=== PATIENT | female | born 1945 | race Caucasian/White ===

== ENCOUNTER 2018-12-17 21:33 | Inpatient (IN) | payer MEDICARE, OTHER ==
[2018-12-17 22:37] VITALS: BMI 28.3
[2018-12-18 00:26] LABS: BASO # 0.1 K/uL (0.0-0.2); BASO % 0.5 % (0.0-2.0); EOS # 0.1 K/uL (0.0-0.7); EOS % 1.1 % (0.0-4.0); HEMOGLOBIN 10.3 g/dL (12.0-16.0); LYMPH # 2.4 K/uL (1.0-4.3); LYMPH % 22.5 % (20.0-40.0); MEAN CELL VOLUME 94.9 fl (81.0-99.0); MEAN CORPUSCULAR HEMOGLOBIN 32.1 pg (27.0-31.0); MEAN CORPUSCULAR HGB CONC 33.8 g/dL (33.0-37.0); MEAN PLATELET VOLUME 8.9 fl (7.2-11.7); MONO # 0.9 K/uL (0.0-0.8); MONO % 8.4 % (0.0-10.0); NEUT # 7.2 K/uL (1.8-7.0); NEUT % 67.5 % (50.0-75.0); RBC 3.22 Mil/uL (3.80-5.20); WHITE BLOOD COUNT 10.7 K/uL (4.8-10.8)
[2018-12-18 00:35] LABS: PROTHROMBIN TIME 11.9 Seconds (9.8-13.1)
[2018-12-18 00:37] LABS: PARTIAL THROMBOPLASTIN TIME 26.4 Seconds (25.6-37.1)
[2018-12-18 00:39] LABS: CALCIUM 9.2 mg/dL (8.4-10.2)
[2018-12-18 00:41] LABS: ALB/GLOB RATIO 1.3 (1.0-2.1); ALBUMIN 3.9 g/dL (3.5-5.0)
--- NOTE | 2018-12-18 02:08 | ED PDOC ---
HPI: General Adult Time Seen by Provider: 12/17/18 22:47 Chief Complaint (Nursing): Lower Extremity Problem/Injury Chief Complaint (Provider): Left calf pain History Per: Patient History/Exam Limitations: no limitations Onset/Duration Of Symptoms: Days Have you had recent travel within the past 21 days to any of the following countries: [place], [place], [place] or [place]?: No Current Symptoms Are (Timing): Still Present Additional Complaint(s): 73 yo female with kidney disease, HTN, CAD, hypothyroid and dementia presents for evaluation of left calf pain a 1 week. Pt sent to ER by Dr. Correa for admission for DVT in [facility]. Pt also reports left hip pain. Daughters in ER and states patient is able to bear weight but has been complaining for awhile. Pt alert in ER. Past Medical History Reviewed: Historical Data, Nursing Documentation, Vital Signs Vital Signs: Last Vital Signs Temp 98.4 F 12/18/18 01:59 Pulse 77 12/18/18 01:59 Resp 15 12/18/18 01:59 BP 111/56 L 12/18/18 01:59 Pulse Ox 96 12/18/18 01:59 Primary Care Provider: Doctor,Alia - Medical History PMH: Arthritis, CAD, Depression, Diabetes, HTN, Hypercholesterolemia, Hypothyroidism Denies: Dementia (denies) - Surgical History Surgical History: Coronary Stent - Family History Family History: States: Unknown Family Hx - Home Medications Home Medications: Ambulatory Orders Medication Instructions Recorded Clopidogrel Bisulfate [Plavix] 75 mg PO DAILY 12/18/18 Donepezil HCl [Aricept] 10 mg PO DAILY 12/18/18 Ezetimibe [Zetia] 10 mg PO DAILY 12/18/18 Ferrous Gluconate [Fergon] 324 mg PO DAILY 12/18/18 Folic Acid 1 mg PO DAILY 12/18/18 Levothyroxine [Synthroid] 25 mcg PO DAILY 12/18/18 Losartan/Hydrochlorothiazide 12.5 mg PO DAILY 12/18/18 [Losartan-Hctz 100-12.5 mg Tab] Megestrol Acetate [Megace] DAILY 12/18/18 Memantine [Namenda] 10 mg PO DAILY 12/18/18 Ranolazine [Ranexa] 500 mg PO DAILY 12/18/18 Simvastatin [Zocor] 20 mg PO DAILY 12/18/18 Sitagliptin Phos/Metformin HCl 1,000 mg PO DAILY 12/18/18 [Janumet 50-1,000 mg Tablet] amLODIPine [Norvasc] 5 mg PO DAILY 12/18/18 - Allergies Allergies/Adverse Reactions: Allergies Allergy/AdvReac Type Severity Reaction Status Date / Time No Known Allergies Allergy Verified 12/17/18 22:38 Review of Systems ROS Statement: Except As Marked, All Systems Reviewed And Found Negative Constitutional: Negative for: Fever, Chills ENT: Negative for: Ear Pain, Ear Discharge, Nose Discharge Cardiovascular: Negative for: Palpitations Respiratory: Negative for: Cough, Shortness of Breath Gastrointestinal: Negative for: Nausea, Vomiting, Abdominal Pain Musculoskeletal: Positive for: Leg Pain, Other (LEft hip pain) Skin: Negative for: Bruising Neurological: Negative for: Weakness, Numbness Physical Exam - Reviewed Nursing Documentation Reviewed: Yes Vital Signs Reviewed: Yes - Physical Exam Appears: Positive for: Well, Non-toxic, No Acute Distress Head Exam: Positive for: ATRAUMATIC, NORMAL INSPECTION, NORMOCEPHALIC Skin: Positive for: Normal Color, Warm, DRY Eye Exam: Positive for: Normal appearance ENT: Positive for: Normal ENT Inspection Neck: Positive for: Normal, Painless ROM Cardiovascular/Chest: Positive for: Regular Rate, Rhythm Respiratory: Positive for: Normal Breath Sounds. Negative for: Accessory Muscle Use, Respiratory Distress Gastrointestinal/Abdominal: Positive for: Normal Exam, Soft Back: Positive for: Normal Inspection Extremity: Positive for: Normal ROM Neurological/Psych: Positive for: Awake, Alert, Normal Tone - Laboratory Results Result Diagrams: 12/17/18 23:50 12/17/18 23:50 Lab Results: PT 11.9 Seconds (9.8-13.1) 12/17/18 23:50 INR 1.0 12/17/18 23:50 APTT 26.4 Seconds (25.6-37.1) 12/17/18 23:50 Total Bilirubin 0.7 mg/dl (0.2-1.3) 12/17/18 23:50 AST 45 U/L (14-36) H 12/17/18 23:50 ALT 26 U/L (9-52) 12/17/18 23:50 Alkaline Phosphatase 36 U/L (38-126) L 12/17/18 23:50 Total Protein 6.9 G/DL (6.3-8.2) 12/17/18 23:50 Albumin 3.9 g/dL (3.5-5.0) 12/17/18 23:50 Globulin 3.0 gm/dL (2.2-3.9) 12/17/18 23:50 Albumin/Globulin Ratio 1.3 (1.0-2.1) 12/17/18 23:50 - ECG O2 Sat by Pulse Oximetry: 96 Medical Decision Making Medical Decision Making: Discussed with Dr. Garcia for admission. Hematology consult ordered. Disposition - Clinical Impression Clinical Impression: DVT (deep venous thrombosis) - Patient ED Disposition Is Patient to be Admitted: Yes - Disposition Disposition Time: 01:18 Condition: STABLE
[2018-12-18] MEDS: Levothyroxine 25 MCG TAB PO SCH (06:39)
[2018-12-18 08:08] LABS: ALB/GLOB RATIO 1.3 (1.0-2.1); ALBUMIN 3.3 g/dL (3.5-5.0)
[2018-12-18] MEDS ORDERED: Heparin 25,000units in D5W 25,000 UNITS/250 ML BAG IV SCH (10:15)
[2018-12-18] MEDS: Ranolazine 500 mg Extended Release Tablets PO SCH (10:18)
[2018-12-18] MEDS: Insulin Regular 100 units/ml SC SCH ×5 (10:21→21:48)
--- NOTE | 2018-12-18 10:46 | US ---
Date of service: 12/17/2018 PROCEDURE: Bilateral lower extremity venous duplex Doppler. HISTORY: (+) DVT COMPARISON: None available. TECHNIQUE: Bilateral common femoral, superficial femoral, popliteal and posterior tibial veins were evaluated. Flow was assessed with color Doppler, compressibility, assessment of phasic flow and augmentation response. FINDINGS: COMMON FEMORAL VEIN: Right CFV: Unremarkable. Left CFV: Unremarkable. SUPERFICIAL FEMORAL VEIN: Right SFV: Unremarkable. Left SFV: Unremarkable. POPLITEAL VEIN: Right Popliteal: Unremarkable Left Popliteal: Noncompressible left popliteal vein/segmental DVT. POSTERIOR TIBIAL VEIN: Right PTV: Unremarkable. Left PTV: Unremarkable. OTHER FINDINGS: None. IMPRESSION: Focal/segmental thrombus confined to the left popliteal vein. No evidence of right lower extremity deep vein thrombosis. Concordant findings (preliminary report) provided by [facility].
--- NOTE | 2018-12-18 11:00 | RAD ---
PROCEDURE: Left Hip X-ray Radiographs. HISTORY: Pain. No history of recent/ related trauma provided. Anatomic area of interest: Greater trochanter region. COMPARISON: None. TECHNIQUE: 2 views obtained. FINDINGS: BONES: Normal. No fracture. JOINTS: Mild femoral acetabular degenerative changes, bilaterally symmetric. SOFT TISSUES: Normal. OTHER FINDINGS: None. IMPRESSION: No acute findings related to/ accounting for the clinical presentation.
--- NOTE | 2018-12-18 11:04 | RAD ---
Date of service: 12/18/2018 HISTORY: Deep vein thrombosis. COMPARISON: 09/03/2009. FINDINGS: LUNGS: No active pulmonary disease. Increased interstitial markings accentuated by poor inspiratory effort compared to prior studies. PLEURA: No significant pleural effusion identified, no pneumothorax apparent. CARDIOVASCULAR: No atherosclerotic calcification present Normal. OSSEOUS STRUCTURES: No significant abnormalities. VISUALIZED UPPER ABDOMEN: Normal. OTHER FINDINGS: None. IMPRESSION: No active disease. No significant interval change compared to the prior examination(s).
--- NOTE | 2018-12-18 15:31 | CARD ---
APPROVED REPORT Date of service: 12/18/2018 EKG Measurement Heart [id number] <Conclusion> Sinus rhythm with 1st degree AV block Otherwise normal ECG
--- NOTE | 2018-12-18 15:40 | CP.PCM.HP ---
History of Present Illness - History of Present Illness History of Present Illness: 73F with past medical history of dementia and diabetes. HPI was obtained from the family because the patient is demented. She was sent to the hospital by me, her PCP, due to left leg swelling and finding of partial thrombosis on LLE US outaptient 1 week prior. Family was advised to send the patient to the hospital several days prior but the patient adamantly refused to come. They finally convinced her to come to the ED last night. She was admitted for treatment for LLE DVT. Lindsey also notes she has diarrhea several days that has now improved. Other concerns frim the family is that her left hip/gluteal region is larger than the right and the patient has been complaining of left hip /left lower back pain and asymmetric gait(limping on the left side). There are no other major complaints Present on Admission - Present on Admission Any Indicators Present on Admission: Yes History of DVT/PE: Yes History of Uncontrolled Diabetes: Yes Urinary Catheter: No Decubitus Ulcer Present: No History Surgical Site Infection Following: None Review of Systems - Review of Systems Systems not reviewed;Unavailable: Dementia All systems: reviewed and no additional remarkable complaints except Past Patient History - Past Medical History & Family History Past Medical History?: Yes Pertinent Family History: Past Medical history : CAD, dementia, diabetes, hypercholesterolemia, hypothyroid, depression Past Sugical history: coronary stent allergies : NKDA Social Hx: former smoker, social drinker, no drugs. 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 [place] HCP: daughter - Lane Bains [phone] Mulu Harrell [phone] Father:father=CAD, young Mother: MA in 70s - Past Social History Smoking Status: Never Smoked - CARDIAC Hx Hypercholesterolemia: Yes Hx Hypertension: Yes - NEUROLOGICAL Hx Dementia: Yes ( ) - ENDOCRINE/METABOLIC Hx Hypothyroidism: Yes - MUSCULOSKELETAL/RHEUMATOLOGICAL Hx Arthritis: Yes Hx Falls: Yes - PSYCHIATRIC Hx Depression: Yes Hx Substance Use: No - SURGICAL HISTORY Hx Coronary Stent: Yes - ANESTHESIA Hx Anesthesia: Yes Hx Anesthesia Reactions: No Meds Allergies/Adverse Reactions: Allergies Allergy/AdvReac Type Severity Reaction Status Date / Time No Known Allergies Allergy Verified 12/17/18 22:38 Physical Exam - Constitutional Appears: Non-toxic, No Acute Distress - Head Exam Head Exam: ATRAUMATIC, NORMAL INSPECTION - Eye Exam Eye Exam: EOMI, Normal appearance - ENT Exam ENT Exam: Mucous Membranes Moist, Normal Exam, Normal Oropharynx, TM's Normal Bilaterally - Neck Exam Neck exam: Positive for: Full Rom, Normal Inspection - Respiratory Exam Respiratory Exam: Clear to Auscultation Bilateral, NORMAL BREATHING PATTERN - Cardiovascular Exam Cardiovascular Exam: REGULAR RHYTHM, RRR - GI/Abdominal Exam GI & Abdominal Exam: Normal Bowel Sounds, Soft - Exam Exam: NORMAL INSPECTION External exam: NORMAL EXTERNAL EXAM - Extremities Exam Extremities exam: Positive for: full ROM, joint swelling, pedal pulses present Additional comments: Left leg with some swelling but decreased compared to 3 days prior - Expanded Lower Extremities Exam Left Lower Leg Exam: swelling - Neurological Exam Neurological exam: Abnormal Gait, Alert, Altered - Psychiatric Exam Psychiatric exam: Depressed, Flat Affect Additional comments: Demented Aox1 to person - Skin Skin Exam: Petechiae Additional comments: Bruising to left thigh - Additional Findings Additional findings: Bruisingto left thigh Results - Vital Signs Recent Vital Signs: Last Vital Signs Temp 98.8 F 12/18/18 12:27 Pulse 79 12/18/18 12:27 Resp 20 12/18/18 12:27 BP 113/66 12/18/18 12:27 Pulse Ox 100 12/18/18 12:27 - Labs Result Diagrams: 12/19/18 11:45 12/19/18 11:45 Labs: Laboratory Results - last 24 hr 12/17/18 12/17/18 12/17/18 23:50 23:50 23:50 WBC 10.7 D RBC 3.22 L Hgb 10.3 L Hct 30.5 L MCV 94.9 D MCH 32.1 H MCHC 33.8 RDW 14.0 Plt Count 322 D MPV 8.9 Neut % (Auto) 67.5 Lymph % (Auto) 22.5 [place] % (Auto) 8.4 Eos % (Auto) 1.1 Baso % (Auto) 0.5 Neut # (Auto) 7.2 H Lymph # (Auto) 2.4 [place] # (Auto) 0.9 H Eos # (Auto) 0.1 Baso # (Auto) 0.1 PT 11.9 INR 1.0 APTT 26.4 Sodium 136 Potassium 5.9 H Chloride 106 Carbon Dioxide 20 L Anion Gap 16 BUN 30 H Creatinine 1.4 H Est GFR ( Amer) 44 Est GFR (Non-Af Amer) 37 POC Glucose (mg/dL) Random Glucose 80 Calcium 9.2 Total Bilirubin 0.7 AST 45 H ALT 26 Alkaline Phosphatase 36 L Total Protein 6.9 Albumin 3.9 Globulin 3.0 Albumin/Globulin Ratio 1.3 12/18/18 12/18/18 06:45 13:29 WBC RBC Hgb Hct MCV MCH MCHC RDW Plt Count MPV Neut % (Auto) Lymph % (Auto) [place] % (Auto) Eos % (Auto) Baso % (Auto) Neut # (Auto) Lymph # (Auto) [place] # (Auto) Eos # (Auto) Baso # (Auto) PT INR APTT Sodium 136 Potassium 4.4 Chloride 108 H Carbon Dioxide 21 L Anion Gap 11 BUN 29 H Creatinine 1.4 H Est GFR ( Amer) 44 Est GFR (Non-Af Amer) 37 POC Glucose (mg/dL) 107 Random Glucose 81 Calcium 9.0 Total Bilirubin 0.3 AST 31 ALT 30 Alkaline Phosphatase 51 Total Protein 5.8 L Albumin 3.3 L Globulin 2.6 Albumin/Globulin Ratio 1.3 Assessment & Plan (1) DVT (deep venous thrombosis) Status: Acute (2) Dementia Status: Acute (3) Acute renal failure (ARF) Status: Acute (4) Acute renal failure (ARF) Status: Acute (5) Agitation Status: Acute (6) Left leg swelling Status: Acute - Assessment and Plan (Free Text) Plan: Admit to inpatient /telemetry DVT on left popliteal confimed by repeat US LE In the ED. Heparin drip ordered Hematology consult for hypercoagulable workup and recommendations for anticogulation Nephrology consult for acute renal failure Psychiatry consult for dementia, agitation, possible depression. Guidance with medication Xray of left hip ordered to assess asymmetry of left hip diabetic diet Insulin sliding scale Resume home medication PT to assess mobility and recommend Family would like social work assistance with obtaining a hospital bed at home due to immobility Decision To Admit - . Bed Request Type: Telemetry
[2018-12-19] MEDS: Levothyroxine 25 MCG TAB PO SCH (05:41)
[2018-12-19] MEDS: Insulin Regular 100 units/ml SC SCH ×4 (06:33→21:43)
--- NOTE | 2018-12-19 08:40 | CP.PCM.CON ---
History of Present Illness - History of Present Illness History of Present Illness: This 73-year-old diabetic female with dementia was sent to the emergency room by her primary care physician after she complained of pain in the left calf area. It DVT was diagnosed and hospit alization was recommended a week back. Apparently patient declined hospitalization at that time. Finally she was brought to the emergency room from where she is hospitalized and this consultation was requested because of an abnormal finding on the electrocardiogram. There is no prior history of myocardial infarction or congestive cardiac failure. Cardiac work-up done at this hospital last year was reviewed. Physical examination shows an elderly lady sitting up in bed eating her breakfast. An intravenous infusion of heparin was in progress. The patient denied any symptoms and the nurses indicated that she was comfortable overnight. Telemetry shows stable sinus rhythm with isolated premature ventricular beats. Her blood pressure was 136/80 mmHg. Her jugular venous pressure was not el evated there was no edema over her lower extremities. Homans sign was positive on the left side. [place] was not palpable the first and second heart sounds were normal there was no murmur or gallop there were no rales. Her abdomen was soft liver and spleen were not palpable. Her electrocardiogram showed sinus rhythm with first-degree AV block (P-R interval was 268 ms) otherwise the electric cardiogram was normal. Nuclear myocardial perfusion study and echocardiogram last year did not show significant abnormalities. Her labs were noted. Her creatinine level of 1.4 was compared to her earlier creatinine level which was in 2016. At that time the creatinine level was normal. Impression: Dementia. Diabetes mellitus. Azotemia. DVT. The first-degree heart block on her electrocardiogram is a consequence of Aricept use. This is a benign finding. Past Patient History - Past Medical History & Family History Past Medical History?: Yes - Past Social History Smoking Status: Never Smoked - CARDIAC Hx Hypercholesterolemia: Yes Hx Hypertension: Yes - NEUROLOGICAL Hx Dementia: Yes ( ) - ENDOCRINE/METABOLIC Hx Hypothyroidism: Yes - MUSCULOSKELETAL/RHEUMATOLOGICAL Hx Arthritis: Yes Hx Falls: Yes - PSYCHIATRIC Hx Depression: Yes Hx Substance Use: No - SURGICAL HISTORY Hx Coronary Stent: Yes - ANESTHESIA Hx Anesthesia: Yes Hx Anesthesia Reactions: No Meds Allergies/Adverse Reactions: Allergies Allergy/AdvReac Type Severity Reaction Status Date / Time No Known Allergies Allergy Verified 12/17/18 22:38 - Medications Medications: Current Medications Alprazolam (Xanax) 0.25 mg PO Q6 PRN PRN Reason: Agitation Stop: 12/25/18 10:01 Last Admin: 12/18/18 04:25 Dose: 0.25 mg Alprazolam (Xanax) 0.25 mg PO Q8 PRN PRN Reason: Agitation Stop: 12/26/18 07:54 Amlodipine Besylate (Norvasc) 5 mg PO DAILY [facility] Last Admin: 12/18/18 10:17 Dose: 5 mg Atorvastatin Calcium (Lipitor) 10 mg PO DAILY [facility] Last Admin: 12/18/18 10:20 Dose: 10 mg Clopidogrel Bisulfate (Plavix) 75 mg PO DAILY [facility] Last Admin: 12/18/18 10:19 Dose: 75 mg Donepezil HCl (Aricept) 10 mg PO DAILY [facility] Last Admin: 12/18/18 10:19 Dose: 10 mg Ezetimibe (Zetia) 10 mg PO DAILY [facility] Last Admin: 12/18/18 10:19 Dose: 10 mg Ferrous Gluconate (Fergon) 324 mg PO DAILY [facility] Last Admin: 12/18/18 10:19 Dose: 324 mg Folic Acid (Folic Acid) 1 mg PO DAILY [facility] Last Admin: 12/18/18 10:19 Dose: 1 mg Hydrochlorothiazide (Microzide) 12.5 mg PO DAILY [facility] Last Admin: 12/18/18 10:18 Dose: 12.5 mg Heparin Sodium/Dextrose (Heparin 25,000 Units/250ml In D5w) 25,000 units in 250 mls @ 10 mls/hr IV .Q24H [facility]; Protocol Last Admin: 12/18/18 10:57 Dose: 10 mls/hr Insulin Human Regular (Humulin R) 0 units SC [facility]; Protocol Last Admin: 12/19/18 06:33 Dose: Not Given Levothyroxine Sodium (Synthroid) 25 mcg PO DAILY@0630 [facility] Last Admin: 12/19/18 05:41 Dose: 25 mcg Losartan Potassium (Cozaar) 100 mg PO DAILY [facility] Last Admin: 12/18/18 10:20 Dose: 100 mg Megestrol Acetate (Megace) 500 mg PO DAILY [facility] Memantine (Namenda) 10 mg PO DAILY [facility] Last Admin: 12/18/18 10:19 Dose: 10 mg Ranolazine (Ranexa) 500 mg PO DAILY [facility] Last Admin: 12/18/18 10:18 Dose: 500 mg Results - Vital Signs Recent Vital Signs: Last Vital Signs Temp 98.5 F 12/19/18 08:20 Pulse 77 12/19/18 08:20 Resp 20 12/19/18 08:20 BP 106/70 12/19/18 08:20 Pulse Ox 100 12/19/18 08:20 - Labs Result Diagrams: 12/17/18 23:50 12/18/18 06:45 Labs: Laboratory Results - last 24 hr 12/18/18 12/18/18 12/18/18 13:29 16:10 16:42 APTT 81.1 H POC Glucose (mg/dL) 107 114 H 12/18/18 12/18/18 12/19/18 21:18 22:00 04:18 APTT 77.0 H 52.4 H POC Glucose (mg/dL) 171 H 12/19/18 05:24 APTT POC Glucose (mg/dL) 112 H
[2018-12-19] MEDS: Megestrol Acetate 40 mg/ml Cup PO SCH (10:10)
[2018-12-19] MEDS: Multivitamin Vitamin B Complex (Nephro-Vite) Tab PO SCH (10:12)
[2018-12-19] MEDS: Ranolazine 500 mg Extended Release Tablets PO SCH (10:13)
[2018-12-19] MEDS: Sodium Chloride 0.9% 1,000 ML IV SCH ×2 (10:30→23:16)
--- NOTE | 2018-12-19 12:09 | CP.PCM.CON ---
History of Present Illness - History of Present Illness History of Present Illness: Nephrology Consultation Note: Assessment: Stable Acute Kidney Injury (N17.9) likely due to hemodynamic injury/low BP/pre-renal hyperkalemia anemia, mild metabolic acidosis DM, HTN dementia DVT Plan No acute need for renal replacement therapy at this time. Hypertension control with meds as ordered. Maintain hemodynamics stable. Avoid hypotension. Patient on multiple BP meds. d/c norvasc and hctz. hold losartan for 1 day Monitor Input/Output, daily weights and renal function with basic metabolic panel will start IVF as NS continue with iron and MVI supplements repeat BMP in AM Check urine analysis, spot protein/creatinine, albumin/creatinine ratio, Na/cr, renal sonogram Anemia work up with TSAT/Ferritin/Vitamin B12/folate level Check for 25-OH vitamin D Dose meds/antibiotics for reduced GFR. Avoid fleets enema/magnesium based laxatives. Avoid nephrotoxins/NSAIDs/ iodinated contrast (unless needed emergently) Glycemic control Further work up/management as per primary team Thanks for allowing me to participate in care of your patient. Dr Yolanda Robbins will follow patient with you from tomorrow. Please call if any Qs Dr Geoffrey Catalan Office: [phone] Chief Complaint; none Reason for consult: Acute Kidney Injury HPI: Pt is a 73 F with hx of diabetes Mellitus ( years), hypertension (years) dementia presented with complaints of left leg DVT and found to have DEISI hence renal consulted Denies OTC/herbal meds or NSAIDs No recent iodinated contrast exposure. Noted obvious episodes of low BP (90s). pt overall poor historian. also with dementia and unable to provide much significant reliable hx ROS: Cardiovascular: No chest pain. Pulmonary: No shortness of breath Gastrointestinal: denies abdominal pain No nausea. No vomiting. Genitourinary: No pain while urinating. Denies blood in urine. All other negative except as mentioned in HPI. pt overall poor historian. also with dementia and unable to provide much significant reliable hx Physical Examination: General Appearance: Comfortable, in no acute respiratory distress, co-operative . Vitals reviewed and noted as below Head; Atraumatic, normocephalic ENT: no ulcers no thrush. Tongue is midline. Oropharynx: no rash or ulcers. EYES: Pupils are equal, round and reactive to light accommodation. Eye muscles and extraocular movement intact. Sclera is anicteric. Neck; supple no lymphadenopathy, no thyromegaly or bruit Lungs: Normal respiratory rate/effort. Breath sounds bilateral equal and clear Heart: Normal rate. s1s2 normal. No rub or gallop. Extremities: no edema. No varicose veins Neurological: Patient is alert, awake and not oriented. No focal deficit. Strength bilateral appropriate and equal Skin: Warm and dry. Normal turgor. No rash. Palpitation: Normal elasticity for age Abdomen: Abdomen is soft. Bowel sounds +. There is no abdominal tenderness, no guarding/rigidity no organomegaly Psych: lack insight and has flat affect/mood MSK: no joint tenderness or swelling. Digits and nails normal, no deformity : kidney or bladder not palpable Labs/imaging reviewed. Past medical history, past surgical history, family history, social history, allergy reviewed and noted as below Family hx: no hx of CKD. Rest non-contributory Past Patient History - Past Medical History & Family History Past Medical History?: Yes - Past Social History Smoking Status: Never Smoked - CARDIAC Hx Hypercholesterolemia: Yes Hx Hypertension: Yes - NEUROLOGICAL Hx Dementia: Yes ( ) - ENDOCRINE/METABOLIC Hx Hypothyroidism: Yes - MUSCULOSKELETAL/RHEUMATOLOGICAL Hx Arthritis: Yes Hx Falls: Yes - PSYCHIATRIC Hx Depression: Yes Hx Substance Use: No - SURGICAL HISTORY Hx Coronary Stent: Yes - ANESTHESIA Hx Anesthesia: Yes Hx Anesthesia Reactions: No Meds Allergies/Adverse Reactions: Allergies Allergy/AdvReac Type Severity Reaction Status Date / Time No Known Allergies Allergy Verified 12/17/18 22:38 - Medications Medications: Current Medications Alprazolam (Xanax) 0.25 mg PO Q6 PRN PRN Reason: Agitation Stop: 12/25/18 10:01 Last Admin: 12/18/18 04:25 Dose: 0.25 mg Alprazolam (Xanax) 0.25 mg PO Q8 PRN PRN Reason: Agitation Stop: 12/26/18 07:54 Atorvastatin Calcium (Lipitor) 10 mg PO DAILY [facility] Last Admin: 12/19/18 10:10 Dose: 10 mg Clopidogrel Bisulfate (Plavix) 75 mg PO DAILY [facility] Last Admin: 12/19/18 10:12 Dose: 75 mg Donepezil HCl (Aricept) 10 mg PO DAILY [facility] Last Admin: 05/19/19 10:09 Dose: 10 mg Ezetimibe (Zetia) 10 mg PO DAILY [facility] Last Admin: 12/19/18 10:18 Dose: 10 mg Ferrous Gluconate (Fergon) 324 mg PO DAILY [facility] Last Admin: 12/19/18 10:09 Dose: 324 mg Folic Acid (Folic Acid) 1 mg PO DAILY [facility] Last Admin: 12/19/18 10:09 Dose: 1 mg Sodium Chloride (Sodium Chloride 0.9%) 1,000 mls @ 75 mls/hr IV .[id number] [facility] Stop: 12/21/18 09:31 Insulin Human Regular (Humulin R) 0 units SC [facility]; Protocol Last Admin: 12/19/18 06:33 Dose: Not Given Levothyroxine Sodium (Synthroid) 25 mcg PO DAILY@0630 [facility] Last Admin: 12/19/18 05:41 Dose: 25 mcg Losartan Potassium (Cozaar) 100 mg PO DAILY [facility] Megestrol Acetate (Megace) 500 mg PO DAILY [facility] Last Admin: 12/19/18 10:10 Dose: 500 mg Memantine (Namenda) 10 mg PO DAILY [facility] Last Admin: 12/19/18 10:13 Dose: 10 mg Ranolazine (Ranexa) 500 mg PO DAILY [facility] Last Admin: 12/19/18 10:13 Dose: 500 mg Vitamin B Complex/Vit C/Folic Acid (Nephro-Shashank) 1 tab PO DAILY [facility] Last Admin: 12/19/18 10:12 Dose: 1 tab Results - Vital Signs Recent Vital Signs: Last Vital Signs Temp 98.5 F 12/19/18 08:20 Pulse 77 12/19/18 08:20 Resp 20 12/19/18 08:20 BP 106/70 12/19/18 08:20 Pulse Ox 100 12/19/18 08:20 - Labs Result Diagrams: 12/17/18 23:50 12/18/18 06:45 Labs: Laboratory Results - last 24 hr 12/18/18 12/18/18 12/18/18 13:29 16:10 16:42 APTT 81.1 H POC Glucose (mg/dL) 107 114 H 12/18/18 12/18/18 12/19/18 21:18 22:00 04:18 APTT 77.0 H 52.4 H POC Glucose (mg/dL) 171 H 12/19/18 12/19/18 05:24 11:45 APTT POC Glucose (mg/dL) 112 H 104
[2018-12-19 12:27] LABS: IRON 110 ug/dL (37-170)
[2018-12-19 12:37] LABS: % IRON SATURATION 35 % (20-55); TOTAL IRON BINDING CAPACITY 317 ug/dL (250-450)
[2018-12-19 12:42] LABS: HEMOGLOBIN 9.5 g/dL (12.0-16.0); MEAN CELL VOLUME 93.7 fl (81.0-99.0); MEAN CORPUSCULAR HEMOGLOBIN 31.8 pg (27.0-31.0); MEAN CORPUSCULAR HGB CONC 33.9 g/dL (33.0-37.0); RBC 2.99 Mil/uL (3.80-5.20); RED CELL DISTRIBUTION WIDTH 13.6 % (11.5-14.5); WHITE BLOOD COUNT 7.1 K/uL (4.8-10.8)
[2018-12-19 12:52] LABS: CALCIUM 8.7 mg/dL (8.4-10.2)
[2018-12-19 12:59] LABS: FERRITIN 24.9 ng/Ml (11.1-264.0)
[2018-12-19] MEDS ORDERED: Heparin 25,000units in D5W 25,000 UNITS/250 ML BAG IV SCH (13:00)
--- NOTE | 2018-12-19 16:13 | CP.PCM.PN ---
Subjective - Date & Time of Evaluation Date of Evaluation: 12/19/18 Time of Evaluation: 08:00 - Subjective Subjective: The patient has dementia. She states she does not feel well but is unable to tell me specifically what is the problem. Xray of pelvis yesterday showed no acute pathology. She is eating well. No reports of continued diarrhea. She was reporte dto be agitated yetserday and cut her tubes/lines in half. Objective - Vital Signs/Intake and Output Vital Signs (last 24 hours): Temp Pulse Resp BP Pulse Ox 98.4 F 77 20 95/61 L 99 12/19/18 12:32 12/19/18 12:32 12/19/18 12:32 12/19/18 12:32 12/19/18 12:32 - Medications Medications: Current Medications Alprazolam (Xanax) 0.25 mg PO Q6 PRN PRN Reason: Agitation Stop: 12/25/18 10:01 Last Admin: 12/18/18 04:25 Dose: 0.25 mg Alprazolam (Xanax) 0.25 mg PO Q8 PRN PRN Reason: Agitation Stop: 12/26/18 07:54 Atorvastatin Calcium (Lipitor) 10 mg PO DAILY [facility] Last Admin: 12/19/18 10:10 Dose: 10 mg Clopidogrel Bisulfate (Plavix) 75 mg PO DAILY [facility] Last Admin: 12/19/18 10:12 Dose: 75 mg Donepezil HCl (Aricept) 10 mg PO DAILY [facility] Last Admin: 12/19/18 10:09 Dose: 10 mg Ezetimibe (Zetia) 10 mg PO DAILY [facility] Last Admin: 12/19/18 10:18 Dose: 10 mg Ferrous Gluconate (Fergon) 324 mg PO DAILY [facility] Last Admin: 12/19/18 10:09 Dose: 324 mg Folic Acid (Folic Acid) 1 mg PO DAILY [facility] Last Admin: 12/19/18 10:09 Dose: 1 mg Sodium Chloride (Sodium Chloride 0.9%) 1,000 mls @ 75 mls/hr IV .[id number] [facility] Stop: 12/21/18 09:31 Last Admin: 12/19/18 10:30 Dose: 75 mls/hr Heparin Sodium/Dextrose (Heparin 25,000 Units/250ml In D5w) 25,000 units in 250 mls @ 7.5 mls/hr IV .Q24H [facility]; Protocol Insulin Human Regular (Humulin R) 0 units SC ACHS [facility]; Protocol Last Admin: 12/19/18 12:00 Dose: Not Given Levothyroxine Sodium (Synthroid) 25 mcg PO DAILY@0630 [facility] Last Admin: 12/19/18 05:41 Dose: 25 mcg Losartan Potassium (Cozaar) 100 mg PO DAILY [facility] Megestrol Acetate (Megace) 500 mg PO DAILY [facility] Last Admin: 12/19/18 10:10 Dose: 500 mg Memantine (Namenda) 10 mg PO DAILY [facility] Last Admin: 12/19/18 10:13 Dose: 10 mg Ranolazine (Ranexa) 500 mg PO DAILY [facility] Last Admin: 12/19/18 10:13 Dose: 500 mg Vitamin B Complex/Vit C/Folic Acid (Nephro-Shashank) 1 tab PO DAILY [facility] Last Admin: 12/19/18 10:12 Dose: 1 tab - Labs Labs: 12/19/18 11:45 12/19/18 11:45 PT 11.9 Seconds (9.8-13.1) 12/17/18 23:50 INR 1.0 12/17/18 23:50 APTT 46.6 Seconds (25.6-37.1) H 12/19/18 11:35 - Constitutional Appears: Well, Non-toxic - Head Exam Head Exam: ATRAUMATIC, NORMAL INSPECTION - Eye Exam Eye Exam: EOMI, Normal appearance, PERRL - ENT Exam ENT Exam: Mucous Membranes Moist, Normal Exam - Neck Exam Neck Exam: Full ROM, Normal Inspection - Respiratory Exam Respiratory Exam: Clear to Ausculation Bilateral - Cardiovascular Exam Cardiovascular Exam: REGULAR RHYTHM - GI/Abdominal Exam GI & Abdominal Exam: Soft, Normal Bowel Sounds - Rectal Exam Rectal Exam: NORMAL INSPECTION - Exam External exam: NORMAL EXTERNAL EXAM - Extremities Exam Extremities Exam: Normal Capillary Refill, Normal Inspection Additional comments: No significant swelling noted on left lower extremity today. - Back Exam Back Exam: NORMAL INSPECTION Additional comments: No CVA tenderness - Neurological Exam Neurological Exam: Alert, Awake - Psychiatric Exam Psychiatric exam: Flat Affect Additional comments: Dementia - Skin Skin Exam: Dry, Intact, Normal Color, Warm Additional comments: Some healing bruises to bilateral lower extremities l Assessment and Plan (1) DVT (deep venous thrombosis) Status: Acute (2) Dementia Status: Acute (3) Acute renal failure (ARF) Status: Acute (4) Acute renal failure (ARF) Status: Acute (5) Agitation Status: Acute (6) Left leg swelling Assessment & Plan: improved/Resolved Status: Acute (7) Hyperkalemia Status: Acute - Assessment and Plan (Free Text) Plan: 1.Continue Heparin gtt adjusting to keep PTT 60-80 2. Await hematology evaluation and recommendation Nephrology evaluated the patient and ordered a renal US. They recommended adjustment to antihypertensive, thinking ARF secondary to hypotension. We await renal US result. Will stop nephro-toxic drugs. 3. We will follow with cardiology and psych recommendations 4. Xanax prn agitation 5. Hyperkalemia is now resolved. 6. Family wants increased home services for the patient and hospital bed for home PT evaluation ordered
[2018-12-19 17:04] LABS: FOLATE > 20.0 ng/mL
--- NOTE | 2018-12-19 17:48 | US ---
Date of service: 12/19/2018 PROCEDURE: Ultrasound of the Kidneys HISTORY: DEISI COMPARISON: None available. TECHNIQUE: Sonogram of the kidneys. FINDINGS: RIGHT KIDNEY: Measures: 8.5 cm. Normal in size, contour and echogenicity. Lower pole simple parapelvic cyst, 1.2 x 1.4 x 1.5 cm. No solid mass. No calculus or hydronephrosis. LEFT KIDNEY: Measures: 8.5 cm. Normal in size, contour and echogenicity. No stone, solid mass lesion or hydronephrosis visualized. OTHER FINDINGS: None. IMPRESSION: 1.5 cm simple right lower pole parapelvic renal cyst. Small kidneys. Correlate with renal function testing.
--- NOTE | 2018-12-19 21:08 | CP.PCM.CON ---
History of Present Illness - History of Present Illness History of Present Illness: 73 year old female with a history of dementia, DM, presenting with left lower extremity swelling/pain, left popliteal DVT, DEISI, and anemia. The patient is a poor historian but per her family, she was diagnosed with a LLE DVT by her PMD. She was recommended to report to the ER for anticoagulation but declined. Due to persistent pain and swelling she came to the hospital. Lower extremity venous duplex revealed segmental popliteal DVT. The patient was started on a heparin drip and notes to improvement in her leg swelling and pain. She does note to diminished mobility due to back pain and weakness. She also may have had a lower extremity DVT several years ago but is unclear of the details. Past medical history: dementia, DM, DVT Past surgical history: Denies Family history: Denies hematologic and oncologic problems Social history: Former tobacco Allergies: NKA Review of systems: All remaining review of systems including HEENT, cardiovascular, respiratory, gastrointestinal, genitourinary, musculoskeletal, dermatologic, neurologic, and psychiatric are negative unless mentioned in the HPI. Past Patient History - Past Medical History & Family History Past Medical History?: Yes - Past Social History Smoking Status: Never Smoked - CARDIAC Hx Hypercholesterolemia: Yes Hx Hypertension: Yes - NEUROLOGICAL Hx Dementia: Yes ( ) - ENDOCRINE/METABOLIC Hx Hypothyroidism: Yes - MUSCULOSKELETAL/RHEUMATOLOGICAL Hx Arthritis: Yes Hx Falls: Yes - PSYCHIATRIC Hx Depression: Yes Hx Substance Use: No - SURGICAL HISTORY Hx Coronary Stent: Yes - ANESTHESIA Hx Anesthesia: Yes Hx Anesthesia Reactions: No Meds Allergies/Adverse Reactions: Allergies Allergy/AdvReac Type Severity Reaction Status Date / Time No Known Allergies Allergy Verified 12/17/18 22:38 - Medications Medications: Current Medications Alprazolam (Xanax) 0.25 mg PO Q6 PRN PRN Reason: Agitation Stop: 12/25/18 10:01 Last Admin: 12/18/18 04:25 Dose: 0.25 mg Alprazolam (Xanax) 0.25 mg PO Q8 PRN PRN Reason: Agitation Stop: 12/26/18 07:54 Atorvastatin Calcium (Lipitor) 10 mg PO DAILY [facility] Last Admin: 12/19/18 10:10 Dose: 10 mg Clopidogrel Bisulfate (Plavix) 75 mg PO DAILY [facility] Last Admin: 12/19/18 10:12 Dose: 75 mg Donepezil HCl (Aricept) 10 mg PO DAILY [facility] Last Admin: 12/19/18 10:09 Dose: 10 mg Ezetimibe (Zetia) 10 mg PO DAILY [facility] Last Admin: 12/19/18 10:18 Dose: 10 mg Ferrous Gluconate (Fergon) 324 mg PO DAILY [facility] Last Admin: 12/19/18 10:09 Dose: 324 mg Folic Acid (Folic Acid) 1 mg PO DAILY [facility] Last Admin: 12/19/18 10:09 Dose: 1 mg Sodium Chloride (Sodium Chloride 0.9%) 1,000 mls @ 75 mls/hr IV .[id number] [facility] Stop: 12/21/18 09:31 Last Admin: 12/19/18 10:30 Dose: 75 mls/hr Heparin Sodium/Dextrose (Heparin 25,000 Units/250ml In D5w) 25,000 units in 250 mls @ 7.5 mls/hr IV .Q24H [facility]; Protocol Last Titration: 12/19/18 20:23 Dose: 6 mls/hr Insulin Human Regular (Humulin R) 0 units SC ACHS [facility]; Protocol Last Admin: 12/19/18 16:32 Dose: Not Given Levothyroxine Sodium (Synthroid) 25 mcg PO DAILY@0630 [facility] Last Admin: 12/19/18 05:41 Dose: 25 mcg Losartan Potassium (Cozaar) 100 mg PO DAILY [facility] Megestrol Acetate (Megace) 500 mg PO DAILY [facility] Last Admin: 12/19/18 10:10 Dose: 500 mg Memantine (Namenda) 10 mg PO DAILY [facility] Last Admin: 12/19/18 10:13 Dose: 10 mg Ranolazine (Ranexa) 500 mg PO DAILY [facility] Last Admin: 12/19/18 10:13 Dose: 500 mg Vitamin B Complex/Vit C/Folic Acid (Nephro-Shashank) 1 tab PO DAILY [facility] Last Admin: 12/19/18 10:12 Dose: 1 tab Physical Exam - Head Exam Head Exam: ATRAUMATIC - Eye Exam Eye Exam: Normal appearance - ENT Exam ENT Exam: Mucous Membranes Dry - Respiratory Exam Respiratory Exam: NORMAL BREATHING PATTERN - Cardiovascular Exam Cardiovascular Exam: +S1, +S2 - GI/Abdominal Exam GI & Abdominal Exam: Normal Bowel Sounds - Extremities Exam Extremities exam: Positive for: pedal edema - Neurological Exam Neurological exam: Oriented x3 - Psychiatric Exam Psychiatric exam: Normal Affect, Normal Mood - Skin Skin Exam: Warm Results - Vital Signs Recent Vital Signs: Last Vital Signs Temp 98 F 12/19/18 20:13 Pulse 80 12/19/18 20:13 Resp 16 12/19/18 20:13 BP 101/57 L 12/19/18 20:13 Pulse Ox 98 12/19/18 20:13 - Labs Result Diagrams: 12/19/18 11:45 12/19/18 11:45 Labs: Laboratory Results - last 24 hr 12/18/18 12/18/18 12/19/18 21:18 22:00 04:18 WBC RBC Hgb Hct MCV MCH MCHC RDW Plt Count APTT 77.0 H 52.4 H Sodium Potassium Chloride Carbon Dioxide Anion Gap BUN Creatinine Est GFR ( Amer) Est GFR (Non-Af Amer) POC Glucose (mg/dL) 171 H Random Glucose Calcium Iron TIBC % Saturation Ferritin Vitamin B12 Folate 12/19/18 12/19/18 12/19/18 05:24 11:35 11:35 WBC RBC Hgb Hct MCV MCH MCHC RDW Plt Count APTT 46.6 H Sodium Potassium Chloride Carbon Dioxide Anion Gap BUN Creatinine Est GFR ( Amer) Est GFR (Non-Af Amer) POC Glucose (mg/dL) 112 H Random Glucose Calcium Iron 110 TIBC 317 % Saturation 35 Ferritin Vitamin B12 Folate 12/19/18 12/19/18 12/19/18 11:35 11:45 11:45 WBC 7.1 RBC 2.99 L Hgb 9.5 L Hct 28.1 L MCV 93.7 MCH 31.8 H MCHC 33.9 RDW 13.6 Plt Count 285 APTT Sodium 136 Potassium 4.1 Chloride 105 Carbon Dioxide 22 Anion Gap 13 BUN 31 H Creatinine 1.5 H Est GFR ( Amer) 41 Est GFR (Non-Af Amer) 34 POC Glucose (mg/dL) Random Glucose 121 H Calcium 8.7 Iron TIBC % Saturation Ferritin 24.9 Vitamin B12 463 Folate > 20.0 12/19/18 12/19/18 12/19/18 11:45 15:54 18:44 WBC RBC Hgb Hct MCV MCH MCHC RDW Plt Count APTT 95.6 H Sodium Potassium Chloride Carbon Dioxide Anion Gap BUN Creatinine Est GFR ( Amer) Est GFR (Non-Af Amer) POC Glucose (mg/dL) 104 99 Random Glucose Calcium Iron TIBC % Saturation Ferritin Vitamin B12 Folate Assessment & Plan (1) DVT (deep venous thrombosis) Assessment and Plan: agree with therapeutic anticoagulation outpatient Eliquis ? provoked from limited mobility/gait instability due to back pain ? occult malignancy - iron deficiency noted; consider GI evaluation Status: Acute (2) Anemia Assessment and Plan: iron deficiency anemia on PO iron, will give IV iron as well recommend GI evaluation ? occult malignancy contrast enhanced CT when renal function improved Status: Acute (3) Coagulopathy Assessment and Plan: secondary to anticoagulation Thank you for this interesting consult. Status: Acute
[2018-12-19 22:40] LABS: URINE BACTERIA RARE (<OCC); URINE BILIRUBIN NEGATIVE (NEGATIVE); URINE BLOOD NEGATIVE (NEGATIVE); URINE CLARITY SLIGHTY-CLOUDY (Clear); URINE COLOR YELLOW (YELLOW); URINE GLUCOSE (UA) NEG (NEGATIVE); URINE LEUKOCYTE ESTERASE NEG Leu/uL (Negative); URINE PROTEIN NEGATIVE (NEGATIVE); URINE UROBILINOGEN 0.2-1.0 mg/dL (0.2-1.0)
[2018-12-20] MEDS: Levothyroxine 25 MCG TAB PO SCH (05:43)
[2018-12-20 06:04] LABS: CALCIUM 8.5 mg/dL (8.4-10.2)
[2018-12-20] MEDS: Insulin Regular 100 units/ml SC SCH ×4 (07:52→21:35)
--- NOTE | 2018-12-20 09:45 | CP.PCM.PN ---
Subjective - Date & Time of Evaluation Date of Evaluation: 12/20/18 Time of Evaluation: 09:30 - Subjective Subjective: The patient denies any new complaints. Though she has dementia Objective - Vital Signs/Intake and Output Vital Signs (last 24 hours): Temp Pulse Resp BP Pulse Ox 97.5 F L 81 20 131/80 99 12/20/18 08:34 12/20/18 08:34 12/20/18 08:34 12/20/18 08:34 12/20/18 08:34 Intake and Output: 12/20/18 12/20/18 06:59 18:59 Intake Total 95 Balance 95 - Medications Medications: Current Medications Alprazolam (Xanax) 0.25 mg PO Q6 PRN PRN Reason: Agitation Stop: 12/25/18 10:01 Last Admin: 12/19/18 23:16 Dose: 0.25 mg Alprazolam (Xanax) 0.25 mg PO Q8 PRN PRN Reason: Agitation Stop: 12/26/18 07:54 Atorvastatin Calcium (Lipitor) 10 mg PO DAILY [facility] Last Admin: 12/19/18 10:10 Dose: 10 mg Clopidogrel Bisulfate (Plavix) 75 mg PO DAILY [facility] Last Admin: 12/19/18 10:12 Dose: 75 mg Donepezil HCl (Aricept) 10 mg PO DAILY [facility] Last Admin: 12/19/18 10:09 Dose: 10 mg Ezetimibe (Zetia) 10 mg PO DAILY [facility] Last Admin: 12/19/18 10:18 Dose: 10 mg Ferrous Gluconate (Fergon) 324 mg PO DAILY [facility] Last Admin: 12/19/18 10:09 Dose: 324 mg Folic Acid (Folic Acid) 1 mg PO DAILY [facility] Last Admin: 12/19/18 10:09 Dose: 1 mg Sodium Chloride (Sodium Chloride 0.9%) 1,000 mls @ 75 mls/hr IV .[id number] [facility] Stop: 12/21/18 09:31 Last Admin: 12/19/18 23:16 Dose: Not Given Heparin Sodium/Dextrose (Heparin 25,000 Units/250ml In D5w) 25,000 units in 250 mls @ 7.5 mls/hr IV .Q24H [facility]; Protocol Last Titration: 12/20/18 03:47 Dose: 7.5 mls/hr Iron Sucrose 200 mg/ Sodium (Chloride) 110 mls @ 110 mls/hr IVPB DAILY [facility] Stop: 12/25/18 09:01 Insulin Human Regular (Humulin R) 0 units SC ACHS [facility]; Protocol Last Admin: 12/20/18 07:52 Dose: Not Given Levothyroxine Sodium (Synthroid) 25 mcg PO DAILY@0630 [facility] Last Admin: 12/20/18 05:43 Dose: Not Given Losartan Potassium (Cozaar) 100 mg PO DAILY [facility] Megestrol Acetate (Megace) 500 mg PO DAILY [facility] Last Admin: 12/19/18 10:10 Dose: 500 mg Memantine (Namenda) 10 mg PO DAILY [facility] Last Admin: 12/19/18 10:13 Dose: 10 mg Ranolazine (Ranexa) 500 mg PO DAILY [facility] Last Admin: 12/19/18 10:13 Dose: 500 mg Vitamin B Complex/Vit C/Folic Acid (Nephro-Shashank) 1 tab PO DAILY [facility] Last Admin: 12/19/18 10:12 Dose: 1 tab - Labs Labs: 12/19/18 11:45 12/20/18 04:55 PT 11.9 Seconds (9.8-13.1) 12/17/18 23:50 INR 1.0 12/17/18 23:50 APTT 117.7 Seconds (25.6-37.1) H 12/20/18 08:45 - Constitutional Appears: Well, Non-toxic - Head Exam Head Exam: ATRAUMATIC - Eye Exam Eye Exam: EOMI, Normal appearance Pupil Exam: PERRL - ENT Exam ENT Exam: Mucous Membranes Moist, Normal Oropharynx Additional comments: Sniffling - Neck Exam Neck Exam: Normal Inspection - Respiratory Exam Respiratory Exam: Clear to Ausculation Bilateral, NORMAL BREATHING PATTERN - Cardiovascular Exam Cardiovascular Exam: REGULAR RHYTHM - Rectal Exam Rectal Exam: Deferred, NORMAL INSPECTION - Exam Exam: NORMAL INSPECTION - Extremities Exam Extremities Exam: Full ROM, Normal Capillary Refill, Normal Inspection - Back Exam Back Exam: NORMAL INSPECTION - Neurological Exam Neurological Exam: Alert, Awake - Psychiatric Exam Psychiatric exam: Flat Affect Additional comments: Dementia - Skin Skin Exam: Normal Color, Warm Assessment and Plan (1) DVT (deep venous thrombosis) Status: Acute (2) Dementia Status: Acute (3) Acute renal failure (ARF) Status: Acute (4) Acute renal failure (ARF) Status: Acute (5) Agitation Status: Acute (6) Left leg swelling Status: Acute (7) Hyperkalemia Status: Acute - Assessment and Plan (Free Text) Plan: DVT - will transition from heparin gtt to eliquis as recommended by Hematology Acute Renal failure - -possibly from hypotension - hctz , norvasc stopped,; on losartan only - iv normal saline bolus !L for hydration Hyperkalemia improved Anemia - rule out GI source - stool occult ordered - GI consulted; await recommendation - continue iron supplement Dementia. ? associated depression - await psychiatry evaluation and recommendation for agitation . Family refuses prn Haldol PT today = OOB , ambulate -clerical and administrative workers - assistance with obtaining hospital bed for home - Family would like more hours of service at home Discharge planning
[2018-12-20] MEDS: Multivitamin Vitamin B Complex (Nephro-Vite) Tab PO SCH (09:55)
[2018-12-20] MEDS: Ranolazine 500 mg Extended Release Tablets PO SCH (09:56)
[2018-12-20] MEDS: Sodium Chloride 0.9% 1,000 ML IV SCH ×4 (10:01→21:23)
--- NOTE | 2018-12-20 10:05 | CP.PCM.PN ---
Subjective - Date & Time of Evaluation Date of Evaluation: 12/20/18 Time of Evaluation: 10:04 - Subjective Subjective: Patient in bed she appears to be comfortable not in acute distress. Vital signs stable. Objective - Vital Signs/Intake and Output Vital Signs (last 24 hours): Temp Pulse Resp BP Pulse Ox 97.5 F L 81 20 131/80 99 12/20/18 08:34 12/20/18 08:34 12/20/18 08:34 12/20/18 08:34 12/20/18 08:34 Intake and Output: 12/20/18 12/20/18 06:59 18:59 Intake Total 95 Balance 95 - Medications Medications: Current Medications Alprazolam (Xanax) 0.25 mg PO Q6 PRN PRN Reason: Agitation Stop: 12/25/18 10:01 Last Admin: 12/19/18 23:16 Dose: 0.25 mg Alprazolam (Xanax) 0.25 mg PO Q8 PRN PRN Reason: Agitation Stop: 12/26/18 07:54 Atorvastatin Calcium (Lipitor) 10 mg PO DAILY [facility] Last Admin: 12/19/18 10:10 Dose: 10 mg Clopidogrel Bisulfate (Plavix) 75 mg PO DAILY [facility] Last Admin: 12/19/18 10:12 Dose: 75 mg Donepezil HCl (Aricept) 10 mg PO DAILY [facility] Last Admin: 12/19/18 10:09 Dose: 10 mg Ezetimibe (Zetia) 10 mg PO DAILY [facility] Last Admin: 12/19/18 10:18 Dose: 10 mg Ferrous Gluconate (Fergon) 324 mg PO DAILY [facility] Last Admin: 12/19/18 10:09 Dose: 324 mg Folic Acid (Folic Acid) 1 mg PO DAILY [facility] Last Admin: 12/19/18 10:09 Dose: 1 mg Sodium Chloride (Sodium Chloride 0.9%) 1,000 mls @ 75 mls/hr IV .[id number] [facility] Stop: 12/21/18 09:31 Last Admin: 12/19/18 23:16 Dose: Not Given Heparin Sodium/Dextrose (Heparin 25,000 Units/250ml In D5w) 25,000 units in 250 mls @ 7.5 mls/hr IV .Q24H [facility]; Protocol Last Titration: 12/20/18 03:47 Dose: 7.5 mls/hr Iron Sucrose 200 mg/ Sodium (Chloride) 110 mls @ 110 mls/hr IVPB DAILY [facility] Stop: 12/25/18 09:01 Sodium Chloride (Sodium Chloride 0.9%) 1,000 mls @ 100 mls/hr IV .Q10H [facility] Stop: 12/20/18 22:00 Insulin Human Regular (Humulin R) 0 units SC ACHS [facility]; Protocol Last Admin: 12/20/18 07:52 Dose: Not Given Levothyroxine Sodium (Synthroid) 25 mcg PO DAILY@0630 [facility] Last Admin: 12/20/18 05:43 Dose: Not Given Megestrol Acetate (Megace) 500 mg PO DAILY [facility] Last Admin: 12/19/18 10:10 Dose: 500 mg Memantine (Namenda) 10 mg PO DAILY [facility] Last Admin: 12/19/18 10:13 Dose: 10 mg Ranolazine (Ranexa) 500 mg PO DAILY [facility] Last Admin: 12/19/18 10:13 Dose: 500 mg Vitamin B Complex/Vit C/Folic Acid (Nephro-Shashank) 1 tab PO DAILY [facility] Last Admin: 12/19/18 10:12 Dose: 1 tab - Labs Labs: 12/19/18 11:45 12/20/18 04:55 PT 11.9 Seconds (9.8-13.1) 12/17/18 23:50 INR 1.0 12/17/18 23:50 APTT 117.7 Seconds (25.6-37.1) H 12/20/18 08:45 - Constitutional Appears: No Acute Distress - Eye Exam Eye Exam: Conjunctival injection - ENT Exam ENT Exam: Mucous Membranes Moist - Neck Exam Neck Exam: absent: Lymphadenopathy - Respiratory Exam Respiratory Exam: NORMAL BREATHING PATTERN. absent: Chest Wall Tenderness, Rhonchi - Cardiovascular Exam Cardiovascular Exam: JVD. absent: Gallop, Rubs - GI/Abdominal Exam GI & Abdominal Exam: Soft, Normal Bowel Sounds - Extremities Exam Extremities Exam: absent: Calf Tenderness - Back Exam Back Exam: absent: CVA tenderness (L), CVA tenderness (R) - Neurological Exam Neurological Exam: Awake - Skin Skin Exam: absent: Cyanosis Assessment and Plan - Assessment and Plan (Free Text) Assessment: Acute Kidney Injury (N17.9) likely due to hemodynamic injury/low BP/pre-renal hyperkalemia anemia, mild metabolic acidosis DM, HTN dementia DVT Recommendation Hold losartan temporarily for few days because serum creatinine rising 1.7 Gentle hydration Monitor kidney function Spot urine for sodium osmolarity and creatinine
[2018-12-20] MEDS: Heparin 25,000units in D5W 25,000 UNITS/250 ML BAG IV SCH (10:45)
[2018-12-20] MEDS ORDERED: Heparin 25,000units in D5W 25,000 UNITS/250 ML BAG IV SCH (12:19)
[2018-12-20] MEDS: Megestrol Acetate 40 mg/ml Cup PO SCH (13:21)
--- NOTE | 2018-12-20 21:22 | CP.PCM.CON ---
History of Present Illness - History of Present Illness History of Present Illness: 73 yo female with dementia admitted with lower abdominal swelling and treatment of DVT. GI evaluation requested for the evaluation of anemia. No gross GI bleeding seen . Patient's daughter Iliana ([phone]) at bedside. Review of Systems - Review of Systems Systems not reviewed;Unavailable: Altered Mental Status Past Patient History - Past Medical History & Family History Past Medical History?: Yes - Past Social History Smoking Status: Never Smoked - CARDIAC Hx Hypercholesterolemia: Yes Hx Hypertension: Yes - NEUROLOGICAL Hx Dementia: Yes ( ) - ENDOCRINE/METABOLIC Hx Hypothyroidism: Yes - MUSCULOSKELETAL/RHEUMATOLOGICAL Hx Arthritis: Yes Hx Falls: Yes - PSYCHIATRIC Hx Depression: Yes Hx Substance Use: No - SURGICAL HISTORY Hx Coronary Stent: Yes - ANESTHESIA Hx Anesthesia: Yes Hx Anesthesia Reactions: No Meds Allergies/Adverse Reactions: Allergies Allergy/AdvReac Type Severity Reaction Status Date / Time No Known Allergies Allergy Verified 12/17/18 22:38 - Medications Medications: Current Medications Alprazolam (Xanax) 0.25 mg PO Q6 PRN PRN Reason: Agitation Stop: 12/25/18 10:01 Last Admin: 12/19/18 23:16 Dose: 0.25 mg Alprazolam (Xanax) 0.25 mg PO Q8 PRN PRN Reason: Agitation Stop: 12/26/18 07:54 Atorvastatin Calcium (Lipitor) 10 mg PO DAILY [facility] Last Admin: 12/20/18 09:54 Dose: 10 mg Clopidogrel Bisulfate (Plavix) 75 mg PO DAILY [facility] Last Admin: 12/20/18 09:55 Dose: 75 mg Donepezil HCl (Aricept) 10 mg PO DAILY [facility] Last Admin: 12/20/18 09:53 Dose: 10 mg Ezetimibe (Zetia) 10 mg PO DAILY [facility] Last Admin: 12/20/18 09:56 Dose: 10 mg Ferrous Gluconate (Fergon) 324 mg PO DAILY [facility] Last Admin: 12/20/18 09:54 Dose: 324 mg Folic Acid (Folic Acid) 1 mg PO DAILY [facility] Last Admin: 12/20/18 09:54 Dose: 1 mg Sodium Chloride (Sodium Chloride 0.9%) 1,000 mls @ 75 mls/hr IV .[id number] [facility] Stop: 12/21/18 09:31 Last Admin: 12/20/18 12:20 Dose: Not Given Iron Sucrose 200 mg/ Sodium (Chloride) 110 mls @ 110 mls/hr IVPB DAILY [facility] Stop: 12/25/18 09:01 Last Admin: 12/20/18 09:52 Dose: 110 mls/hr Sodium Chloride (Sodium Chloride 0.9%) 1,000 mls @ 100 mls/hr IV .Q10H [facility] Stop: 12/20/18 22:00 Last Admin: 12/20/18 12:21 Dose: Not Given Heparin Sodium/Dextrose (Heparin 25,000 Units/250ml In D5w) 25,000 units in 250 mls @ 5.5 mls/hr IV .Q24H [facility]; Protocol Last Admin: 12/20/18 10:45 Dose: 5.5 mls/hr Insulin Human Regular (Humulin R) 0 units SC ACHS [facility]; Protocol Last Admin: 12/20/18 17:35 Dose: Not Given Levothyroxine Sodium (Synthroid) 25 mcg PO DAILY@0630 [facility] Last Admin: 12/20/18 05:43 Dose: Not Given Megestrol Acetate (Megace) 500 mg PO DAILY [facility] Last Admin: 12/20/18 13:21 Dose: Not Given Memantine (Namenda) 10 mg PO DAILY [facility] Last Admin: 12/20/18 09:55 Dose: 10 mg Ranolazine (Ranexa) 500 mg PO DAILY [facility] Last Admin: 12/20/18 09:56 Dose: 500 mg Vitamin B Complex/Vit C/Folic Acid (Nephro-Shashank) 1 tab PO DAILY [facility] Last Admin: 12/20/18 09:55 Dose: 1 tab Physical Exam - Constitutional Appears: No Acute Distress, Older Than Stated Age - Head Exam Head Exam: ATRAUMATIC - Eye Exam Eye Exam: Normal appearance - ENT Exam ENT Exam: Normal Exam - Neck Exam Neck exam: Positive for: Normal Inspection - Respiratory Exam Respiratory Exam: Clear to Auscultation Bilateral - Cardiovascular Exam Cardiovascular Exam: REGULAR RHYTHM, +S1, +S2 - GI/Abdominal Exam GI & Abdominal Exam: Normal Bowel Sounds, Soft. absent: Tenderness Results - Vital Signs Recent Vital Signs: Last Vital Signs Temp 98.1 F 12/20/18 19:38 Pulse 72 12/20/18 19:38 Resp 18 12/20/18 19:38 BP 99/62 L 12/20/18 19:38 Pulse Ox 99 12/20/18 19:38 - Labs Result Diagrams: 12/19/18 11:45 12/20/18 04:55 Labs: Laboratory Results - last 24 hr 12/19/18 12/19/18 12/20/18 21:24 Unknown 02:30 APTT 46.7 H Sodium Potassium Chloride Carbon Dioxide Anion Gap BUN Creatinine Est GFR ( Amer) Est GFR (Non-Af Amer) POC Glucose (mg/dL) 97 Random Glucose Calcium 25-OH Vitamin D Total Urine Color Yellow Urine Clarity Slighty-cloudy Urine pH 7.0 Ur Specific [place] 1.012 Urine Protein Negative Urine Glucose (UA) Neg Urine Ketones Negative Urine Blood Negative Urine Nitrate Negative Urine Bilirubin Negative Urine Urobilinogen 0.2-1.0 Ur Leukocyte Esterase Neg Urine RBC (Auto) 1 Urine Microscopic WBC < 1 Urine Bacteria Rare 12/20/18 12/20/18 12/20/18 04:55 04:55 05:33 APTT Sodium 138 Potassium 4.2 Chloride 109 H Carbon Dioxide 19 L Anion Gap 14 BUN 28 H Creatinine 1.7 H Est GFR ( Amer) 36 Est GFR (Non-Af Amer) 29 POC Glucose (mg/dL) 102 Random Glucose 95 Calcium 8.5 25-OH Vitamin D Total 36.5 Urine Color Urine Clarity Urine pH Ur Specific [place] Urine Protein Urine Glucose (UA) Urine Ketones Urine Blood Urine Nitrate Urine Bilirubin Urine Urobilinogen Ur Leukocyte Esterase Urine RBC (Auto) Urine Microscopic WBC Urine Bacteria 12/20/18 12/20/18 12/20/18 08:45 10:52 15:00 APTT 117.7 H 69.2 H Sodium Potassium Chloride Carbon Dioxide Anion Gap BUN Creatinine Est GFR ( Amer) Est GFR (Non-Af Amer) POC Glucose (mg/dL) 173 H Random Glucose Calcium 25-OH Vitamin D Total Urine Color Urine Clarity Urine pH Ur Specific [place] Urine Protein Urine Glucose (UA) Urine Ketones Urine Blood Urine Nitrate Urine Bilirubin Urine Urobilinogen Ur Leukocyte Esterase Urine RBC (Auto) Urine Microscopic WBC Urine Bacteria 12/20/18 15:47 APTT Sodium Potassium Chloride Carbon Dioxide Anion Gap BUN Creatinine Est GFR ( Amer) Est GFR (Non-Af Amer) POC Glucose (mg/dL) 128 H Random Glucose Calcium 25-OH Vitamin D Total Urine Color Urine Clarity Urine pH Ur Specific [place] Urine Protein Urine Glucose (UA) Urine Ketones Urine Blood Urine Nitrate Urine Bilirubin Urine Urobilinogen Ur Leukocyte Esterase Urine RBC (Auto) Urine Microscopic WBC Urine Bacteria Assessment & Plan (1) Anemia Assessment and Plan: Patient presenting with normocytic anemia and elevated creatinine. Fe/TIBC, Ferritin levels all normal . No clinically evident GI bleeding. At present no clear indications for endoscopy present. Status: Acute
--- NOTE | 2018-12-20 22:30 | CP.PCM.PN ---
Subjective - Date & Time of Evaluation Date of Evaluation: 12/20/18 Time of Evaluation: 18:00 - Subjective Subjective: Appears comfortable Objective - Vital Signs/Intake and Output Vital Signs (last 24 hours): Temp Pulse Resp BP Pulse Ox 98.1 F 72 18 99/62 L 99 12/20/18 19:38 12/20/18 19:38 12/20/18 19:38 12/20/18 19:38 12/20/18 19:38 Intake and Output: 12/20/18 12/21/18 18:59 06:59 Intake Total 500 Output Total 1 Balance 499 - Medications Medications: Current Medications Alprazolam (Xanax) 0.25 mg PO Q6 PRN PRN Reason: Agitation Stop: 12/25/18 10:01 Last Admin: 12/19/18 23:16 Dose: 0.25 mg Alprazolam (Xanax) 0.25 mg PO Q8 PRN PRN Reason: Agitation Stop: 12/26/18 07:54 Atorvastatin Calcium (Lipitor) 10 mg PO DAILY [facility] Last Admin: 12/20/18 09:54 Dose: 10 mg Clopidogrel Bisulfate (Plavix) 75 mg PO DAILY [facility] Last Admin: 12/20/18 09:55 Dose: 75 mg Donepezil HCl (Aricept) 10 mg PO DAILY [facility] Last Admin: 12/20/18 09:53 Dose: 10 mg Ezetimibe (Zetia) 10 mg PO DAILY [facility] Last Admin: 12/20/18 09:56 Dose: 10 mg Ferrous Gluconate (Fergon) 324 mg PO DAILY [facility] Last Admin: 12/20/18 09:54 Dose: 324 mg Folic Acid (Folic Acid) 1 mg PO DAILY [facility] Last Admin: 12/20/18 09:54 Dose: 1 mg Iron Sucrose 200 mg/ Sodium (Chloride) 110 mls @ 110 mls/hr IVPB DAILY [facility] Stop: 12/25/18 09:01 Last Admin: 12/20/18 09:52 Dose: 110 mls/hr Heparin Sodium/Dextrose (Heparin 25,000 Units/250ml In D5w) 25,000 units in 250 mls @ 5.5 mls/hr IV .Q24H [facility]; Protocol Last Admin: 12/20/18 10:45 Dose: 5.5 mls/hr Insulin Human Regular (Humulin R) 0 units SC [facility]; Protocol Last Admin: 12/20/18 21:35 Dose: Not Given Levothyroxine Sodium (Synthroid) 25 mcg PO DAILY@0630 [facility] Last Admin: 12/20/18 05:43 Dose: Not Given Megestrol Acetate (Megace) 500 mg PO DAILY [facility] Last Admin: 12/20/18 13:21 Dose: Not Given Memantine (Namenda) 10 mg PO DAILY [facility] Last Admin: 12/20/18 09:55 Dose: 10 mg Ranolazine (Ranexa) 500 mg PO DAILY [facility] Last Admin: 12/20/18 09:56 Dose: 500 mg Vitamin B Complex/Vit C/Folic Acid (Nephro-Shashank) 1 tab PO DAILY [facility] Last Admin: 12/20/18 09:55 Dose: 1 tab - Labs Labs: 12/19/18 11:45 12/20/18 04:55 PT 11.9 Seconds (9.8-13.1) 12/17/18 23:50 INR 1.0 12/17/18 23:50 APTT 60.1 Seconds (25.6-37.1) H 12/20/18 20:58 - Head Exam Head Exam: ATRAUMATIC - Eye Exam Eye Exam: Normal appearance - ENT Exam ENT Exam: Mucous Membranes Dry - Respiratory Exam Respiratory Exam: NORMAL BREATHING PATTERN - Cardiovascular Exam Cardiovascular Exam: +S1, +S2 - GI/Abdominal Exam GI & Abdominal Exam: Normal Bowel Sounds Assessment and Plan (1) DVT (deep venous thrombosis) Assessment & Plan: agree with therapeutic anticoagulation outpatient Eliquis ? provoked from limited mobility/gait instability due to back pain ? occult malignancy - iron deficiency noted; consider GI evaluation Status: Acute (2) Anemia Assessment & Plan: iron deficiency anemia on PO iron, will give IV iron as well recommend GI evaluation ? occult malignancy contrast enhanced CT when renal function improved Status: Acute (3) Coagulopathy Assessment & Plan: secondary to anticoagulation Status: Acute
[2018-12-21] MEDS: Levothyroxine 25 MCG TAB PO SCH (06:00)
[2018-12-21] MEDS: Insulin Regular 100 units/ml SC SCH ×2 (06:31→11:30)
[2018-12-21 08:23] VITALS: RESP 18
[2018-12-21] MEDS: Ranolazine 500 mg Extended Release Tablets PO SCH (09:05)
[2018-12-21] MEDS: Multivitamin Vitamin B Complex (Nephro-Vite) Tab PO SCH (09:05)
--- NOTE | 2018-12-21 10:24 | CP.PCM.PN ---
Subjective - Date & Time of Evaluation Date of Evaluation: 12/21/18 Time of Evaluation: 10:23 - Subjective Subjective: Patient bed she appears to be quiet not in any distress. Patient appears to be comfortable. Vital signs stable. Objective - Vital Signs/Intake and Output Vital Signs (last 24 hours): Temp Pulse Resp BP Pulse Ox 98.2 F 84 18 130/84 99 12/21/18 08:23 12/21/18 08:23 12/21/18 08:23 12/21/18 08:23 12/21/18 08:23 - Medications Medications: Current Medications Alprazolam (Xanax) 0.25 mg PO Q8 PRN PRN Reason: Agitation Stop: 12/26/18 07:54 Atorvastatin Calcium (Lipitor) 10 mg PO DAILY [facility] Last Admin: 12/21/18 09:05 Dose: 10 mg Clopidogrel Bisulfate (Plavix) 75 mg PO DAILY [facility] Last Admin: 12/21/18 09:05 Dose: 75 mg Donepezil HCl (Aricept) 10 mg PO DAILY [facility] Last Admin: 12/21/18 09:05 Dose: 10 mg Ezetimibe (Zetia) 10 mg PO DAILY [facility] Last Admin: 12/21/18 09:05 Dose: 10 mg Ferrous Gluconate (Fergon) 324 mg PO DAILY [facility] Last Admin: 12/21/18 09:05 Dose: 324 mg Folic Acid (Folic Acid) 1 mg PO DAILY [facility] Last Admin: 12/21/18 09:05 Dose: 1 mg Iron Sucrose 200 mg/ Sodium (Chloride) 110 mls @ 110 mls/hr IVPB DAILY [facility] Stop: 12/25/18 09:01 Last Admin: 12/21/18 09:05 Dose: 110 mls/hr Heparin Sodium/Dextrose (Heparin 25,000 Units/250ml In D5w) 25,000 units in 250 mls @ 5.5 mls/hr IV .Q24H [facility]; Protocol Last Admin: 12/20/18 10:45 Dose: 5.5 mls/hr Insulin Human Regular (Humulin R) 0 units SC ACHS [facility]; Protocol Last Admin: 12/21/18 06:31 Dose: Not Given Levothyroxine Sodium (Synthroid) 25 mcg PO DAILY@0630 [facility] Last Admin: 12/21/18 06:00 Dose: 25 mcg Megestrol Acetate (Megace) 500 mg PO DAILY [facility] Last Admin: 12/20/18 13:21 Dose: Not Given Memantine (Namenda) 10 mg PO DAILY [facility] Last Admin: 12/21/18 09:05 Dose: 10 mg Ranolazine (Ranexa) 500 mg PO DAILY [facility] Last Admin: 12/21/18 09:05 Dose: 500 mg Vitamin B Complex/Vit C/Folic Acid (Nephro-Shashank) 1 tab PO DAILY [facility] Last Admin: 12/21/18 09:05 Dose: 1 tab - Labs Labs: 12/19/18 11:45 12/20/18 04:55 PT 11.9 Seconds (9.8-13.1) 12/17/18 23:50 INR 1.0 12/17/18 23:50 APTT 35.4 Seconds (25.6-37.1) 12/21/18 09:15 - Constitutional Appears: No Acute Distress - Eye Exam Eye Exam: Conjunctival injection - ENT Exam ENT Exam: Mucous Membranes Moist - Neck Exam Neck Exam: absent: Lymphadenopathy - Respiratory Exam Respiratory Exam: NORMAL BREATHING PATTERN. absent: Rhonchi - Cardiovascular Exam Cardiovascular Exam: REGULAR RHYTHM. absent: Gallop, JVD, Rubs - GI/Abdominal Exam GI & Abdominal Exam: Soft, Normal Bowel Sounds - Extremities Exam Extremities Exam: Calf Tenderness - Back Exam Back Exam: absent: CVA tenderness (L), CVA tenderness (R) - Neurological Exam Neurological Exam: Alert - Psychiatric Exam Psychiatric exam: Normal Affect - Skin Skin Exam: absent: Cyanosis Assessment and Plan - Assessment and Plan (Free Text) Assessment: Acute Kidney Injury (N17.9) likely due to hemodynamic injury/low BP/pre-renal hyperkalemia anemia, mild metabolic acidosis DM, HTN dementia DVT Recommendation Hold losartan because serum creatinine rising 1.7 Gentle hydration Monitor kidney function
[2018-12-21] MEDS: Heparin 25,000units in D5W 25,000 UNITS/250 ML BAG IV SCH (11:25)
[2018-12-21 12:10] VITALS: O2SAT 100
--- NOTE | 2018-12-21 13:12 | CP.PCM.PN ---
Subjective - Date & Time of Evaluation Date of Evaluation: 12/21/18 Time of Evaluation: 13:10 - Subjective Subjective: No acute complaints today. NO distress Stool occult negative GI states no acute GI bleed and no need for colonoscopy/malignancy workup in hospital Objective - Vital Signs/Intake and Output Vital Signs (last 24 hours): Temp Pulse Resp BP Pulse Ox 98.1 F 73 18 124/81 100 12/21/18 12:09 12/21/18 12:09 12/21/18 12:09 12/21/18 12:09 12/21/18 12:09 - Medications Medications: Current Medications Alprazolam (Xanax) 0.25 mg PO Q8 PRN PRN Reason: Agitation Stop: 12/26/18 07:54 Atorvastatin Calcium (Lipitor) 10 mg PO DAILY [facility] Last Admin: 12/21/18 09:05 Dose: 10 mg Clopidogrel Bisulfate (Plavix) 75 mg PO DAILY [facility] Last Admin: 12/21/18 09:05 Dose: 75 mg Donepezil HCl (Aricept) 10 mg PO DAILY [facility] Last Admin: 12/21/18 09:05 Dose: 10 mg Ezetimibe (Zetia) 10 mg PO DAILY [facility] Last Admin: 12/21/18 09:05 Dose: 10 mg Ferrous Gluconate (Fergon) 324 mg PO DAILY [facility] Last Admin: 12/21/18 09:05 Dose: 324 mg Folic Acid (Folic Acid) 1 mg PO DAILY [facility] Last Admin: 12/21/18 09:05 Dose: 1 mg Iron Sucrose 200 mg/ Sodium (Chloride) 110 mls @ 110 mls/hr IVPB DAILY [facility] Stop: 12/25/18 09:01 Last Admin: 12/21/18 09:05 Dose: 110 mls/hr Insulin Human Regular (Humulin R) 0 units SC [facility]; Protocol Last Admin: 12/21/18 06:31 Dose: Not Given Levothyroxine Sodium (Synthroid) 25 mcg PO DAILY@0630 [facility] Last Admin: 12/21/18 06:00 Dose: 25 mcg Megestrol Acetate (Megace) 500 mg PO DAILY [facility] Last Admin: 12/20/18 13:21 Dose: Not Given Memantine (Namenda) 10 mg PO DAILY [facility] Last Admin: 12/21/18 09:05 Dose: 10 mg Ranolazine (Ranexa) 500 mg PO DAILY [facility] Last Admin: 12/21/18 09:05 Dose: 500 mg Vitamin B Complex/Vit C/Folic Acid (Nephro-Shashank) 1 tab PO DAILY [facility] Last Admin: 12/21/18 09:05 Dose: 1 tab - Labs Labs: 12/19/18 11:45 12/20/18 04:55 PT 11.9 Seconds (9.8-13.1) 12/17/18 23:50 INR 1.0 12/17/18 23:50 APTT 35.4 Seconds (25.6-37.1) 12/21/18 09:15 - Constitutional Appears: Non-toxic, No Acute Distress - Head Exam Head Exam: NORMAL INSPECTION - Eye Exam Eye Exam: Normal appearance Pupil Exam: PERRL - Neck Exam Neck Exam: Full ROM, Normal Inspection - Respiratory Exam Respiratory Exam: Clear to Ausculation Bilateral, NORMAL BREATHING PATTERN - Cardiovascular Exam Cardiovascular Exam: REGULAR RHYTHM, +S1, +S2 - GI/Abdominal Exam GI & Abdominal Exam: Soft, Normal Bowel Sounds - Rectal Exam Rectal Exam: Deferred - Extremities Exam Extremities Exam: Full ROM, Normal Capillary Refill, Normal Inspection Additional comments: o swelling of left leg. Leg swelling resolved - Back Exam Back Exam: Full ROM, NORMAL INSPECTION - Neurological Exam Neurological Exam: Alert, Awake, CN II-XII Intact - Psychiatric Exam Psychiatric exam: Flat Affect, Normal Mood Additional comments: Dementia - Skin Skin Exam: Normal Color Assessment and Plan (1) DVT (deep venous thrombosis) Status: Acute (2) Dementia Status: Acute (3) Acute renal failure (ARF) Status: Acute (4) Acute renal failure (ARF) Status: Acute (5) Agitation Status: Acute (6) Left leg swelling Status: Acute (7) Hyperkalemia Status: Acute - Assessment and Plan (Free Text) Assessment: She us stable for d/d home today She will continue anticoagulation at home with eliquis We will continue with losartan at home only for Await note and recommendations from psychiatry regarding dementia management at home Will try to coordinate with community case manager/HEAD[employer] to get hospital bed for home. PLAN to d/c home today
--- NOTE | 2018-12-21 13:17 | CP.PCM.CON ---
History of Present Illness - History of Present Illness History of Present Illness: consult requested for episodes of agitation pt is 73 year old female with a history of dementia, DM, presenting with left lower extremity swelling/pain, left popliteal DVT, DEISI, and anemia. The patient is a poor historian , history obtained through chart review and from staff as per staff pt has been having episodes of agitation and uncooperative with care , on evaluation pt was calm, anxious mood, constricted affect, speech is ir relevant and thought process not goal directed with loose association, denied perceptual disturbances, denied suicidal or homicidal ideation alert awake oriented to person only Past Patient History - Past Medical History & Family History Past Medical History?: Yes - Past Social History Smoking Status: Never Smoked - CARDIAC Hx Cardiac Disorders: Yes Hx Hypertension: Yes - NEUROLOGICAL Hx Dementia: Yes ( ) - ENDOCRINE/METABOLIC Hx Diabetes Mellitus Type 2: Yes - MUSCULOSKELETAL/RHEUMATOLOGICAL Hx Arthritis: Yes - PSYCHIATRIC Hx Depression: Yes Hx Substance Use: No - SURGICAL HISTORY Hx Coronary Stent: Yes - ANESTHESIA Hx Anesthesia: Yes Hx Anesthesia Reactions: No Meds Allergies/Adverse Reactions: Allergies Allergy/AdvReac Type Severity Reaction Status Date / Time No Known Allergies Allergy Verified 12/17/18 22:38 - Medications Medications: Current Medications Alprazolam (Xanax) 0.25 mg PO Q8 PRN PRN Reason: Agitation Stop: 12/26/18 07:54 Atorvastatin Calcium (Lipitor) 10 mg PO DAILY [facility] Last Admin: 12/21/18 09:05 Dose: 10 mg Clopidogrel Bisulfate (Plavix) 75 mg PO DAILY [facility] Last Admin: 12/21/18 09:05 Dose: 75 mg Donepezil HCl (Aricept) 10 mg PO DAILY [facility] Last Admin: 12/21/18 09:05 Dose: 10 mg Ezetimibe (Zetia) 10 mg PO DAILY [facility] Last Admin: 12/21/18 09:05 Dose: 10 mg Ferrous Gluconate (Fergon) 324 mg PO DAILY [facility] Last Admin: 12/21/18 09:05 Dose: 324 mg Folic Acid (Folic Acid) 1 mg PO DAILY [facility] Last Admin: 12/21/18 09:05 Dose: 1 mg Iron Sucrose 200 mg/ Sodium (Chloride) 110 mls @ 110 mls/hr IVPB DAILY [facility] Stop: 12/25/18 09:01 Last Admin: 12/21/18 09:05 Dose: 110 mls/hr Insulin Human Regular (Humulin R) 0 units SC [facility]; Protocol Last Admin: 12/21/18 06:31 Dose: Not Given Levothyroxine Sodium (Synthroid) 25 mcg PO DAILY@0630 [facility] Last Admin: 12/21/18 06:00 Dose: 25 mcg Megestrol Acetate (Megace) 500 mg PO DAILY [facility] Last Admin: 12/20/18 13:21 Dose: Not Given Memantine (Namenda) 10 mg PO DAILY [facility] Last Admin: 12/21/18 09:05 Dose: 10 mg Ranolazine (Ranexa) 500 mg PO DAILY [facility] Last Admin: 12/21/18 09:05 Dose: 500 mg Vitamin B Complex/Vit C/Folic Acid (Nephro-Shashank) 1 tab PO DAILY [facility] Last Admin: 12/21/18 09:05 Dose: 1 tab Results - Vital Signs Recent Vital Signs: Last Vital Signs Temp 98.1 F 12/21/18 12:09 Pulse 73 12/21/18 12:09 Resp 18 12/21/18 12:09 BP 124/81 12/21/18 12:09 Pulse Ox 100 12/21/18 12:09 - Labs Result Diagrams: 12/19/18 11:45 12/20/18 04:55 Labs: Laboratory Results - last 24 hr 12/19/18 12/19/18 12/20/18 Unknown Unknown 04:55 APTT POC Glucose (mg/dL) 25-OH Vitamin D Total 36.5 Ur Random Creatinine 65 U Random Total Protein 203 H Urine Total Volume <0.2 Microalb/Creat Ratio Note Stool Occult Blood 12/20/18 12/20/18 12/20/18 15:00 15:47 20:58 APTT 69.2 H 60.1 H POC Glucose (mg/dL) 128 H 25-OH Vitamin D Total Ur Random Creatinine U Random Total Protein Urine Total Volume Microalb/Creat Ratio Stool Occult Blood 12/20/18 12/20/18 12/21/18 21:09 Unknown 05:28 APTT POC Glucose (mg/dL) 144 H 99 25-OH Vitamin D Total Ur Random Creatinine U Random Total Protein Urine Total Volume Microalb/Creat Ratio Stool Occult Blood Negative 12/21/18 12/21/18 09:15 11:11 APTT 35.4 POC Glucose (mg/dL) 138 H 25-OH Vitamin D Total Ur Random Creatinine U Random Total Protein Urine Total Volume Microalb/Creat Ratio Stool Occult Blood Assessment & Plan - Assessment and Plan (Free Text) Assessment: major neurocognitive disorder Plan: continue with aricept and namenda start haldol 0.25 mg po q12 prn for agitation
--- NOTE | 2018-12-21 13:42 | CP.PCM.PCO ---
Assessment & Plan - Assessment and Plan (Free Text) Assessment: I have evaluated Mulu Tuttle on 12/21/18. Due to patient's dx Dementia, DVT, deconditioning, Anemia, ARF, she requires the head of bed elevated more than 30 degrees most of the time. Furthermore, patient requires positioning of the body in waysnot feasible with an ordinary bed in order to alleviate pain due to DVT, decreased mobility.
[2018-12-21 16:02] VITALS: BP 103/68; PULSE 80; TEMP 98.8
[2018-12-21] MEDS ORDERED: Ranolazine 500 mg Extended Release Tablets PO SCH (17:00)
--- NOTE | 2018-12-21 22:39 | CP.PCM.DIS ---
Provider - Provider Date of Admission: 12/18/18 01:36 Attending physician: Mitchell Serrato MD Primary care physician: Mitchell Serrato Consults: 12/18/18 01:39 Hematology Oncology Consult Stat Comment: Consulting Provider: Manuel Rodrigues Consulting Physician: Manuel Rodrigues Reason for Consult: DVT 12/18/18 10:10 Cardiology Consult Routine Comment: Consulting Provider: Rom Lanza V Consulting Physician: Rom Lanza V Reason for Consult: Abnormal EKG 12/18/18 15:30 Psychiatry Consult Routine Comment: agitation, hx of dementi family doesnt want Haldol Consulting Provider: Ciaran Robin Consulting Physician: Ciaran Robin Reason for Consult: agitation, hx of dementi family doesnt want Haldol 12/18/18 15:48 Nephrology Consult Routine Comment: Consulting Provider: Idalia Lopez Consulting Physician: Idalia Lopez Reason for Consult: acute on chronic renal failure 12/20/18 09:40 Gastroenterology Consult Routine Comment: Consulting Provider: Janes Fernandez Consulting Physician: Janes Fernandez Reason for Consult: anemia, eval for GI bleed or malignancy 12/20/18 18:41 Case Management Referral Routine Comment: Physician Instructions: Reason For Exam: Home nursing services Reason for Referral: Discharge Planning Time Spent in preparation of Discharge (in minutes): 40 Diagnosis - Discharge Diagnosis (1) DVT (deep venous thrombosis) Status: Acute (2) Dementia Status: Acute (3) Acute renal failure (ARF) Status: Acute (4) Acute renal failure (ARF) Status: Acute (5) Agitation Status: Acute (6) Left leg swelling Status: Acute (7) Hyperkalemia Status: Acute Hospital Course - Lab Results Lab Results: Most Recent Lab Values WBC 7.1 K/uL (4.8-10.8) 12/19/18 11:45 RBC 2.99 Mil/uL (3.80-5.20) L 12/19/18 11:45 Hgb 9.5 g/dL (12.0-16.0) L 12/19/18 11:45 Hct 28.1 % (34.0-47.0) L 12/19/18 11:45 MCV 93.7 fl (81.0-99.0) 12/19/18 11:45 MCH 31.8 pg (27.0-31.0) H 12/19/18 11:45 MCHC 33.9 g/dL (33.0-37.0) 12/19/18 11:45 RDW 13.6 % (11.5-14.5) 12/19/18 11:45 Plt Count 285 K/uL (130-400) 12/19/18 11:45 MPV 8.9 fl (7.2-11.7) 12/17/18 23:50 Neut % (Auto) 67.5 % (50.0-75.0) 12/17/18 23:50 Lymph % (Auto) 22.5 % (20.0-40.0) 12/17/18 23:50 [place] % (Auto) 8.4 % (0.0-10.0) 12/17/18 23:50 Eos % (Auto) 1.1 % (0.0-4.0) 12/17/18 23:50 Baso % (Auto) 0.5 % (0.0-2.0) 12/17/18 23:50 Neut # (Auto) 7.2 K/uL (1.8-7.0) H 12/17/18 23:50 Lymph # (Auto) 2.4 K/uL (1.0-4.3) 12/17/18 23:50 [place] # (Auto) 0.9 K/uL (0.0-0.8) H 12/17/18 23:50 Eos # (Auto) 0.1 K/uL (0.0-0.7) 12/17/18 23:50 Baso # (Auto) 0.1 K/uL (0.0-0.2) 12/17/18 23:50 PT 11.9 Seconds (9.8-13.1) 12/17/18 23:50 INR 1.0 12/17/18 23:50 APTT 35.4 Seconds (25.6-37.1) 12/21/18 09:15 Sodium 138 mmol/l (132-148) 12/20/18 04:55 Potassium 4.2 MMOL/L (3.6-5.0) 12/20/18 04:55 Chloride 109 mmol/L (98-107) H 12/20/18 04:55 Carbon Dioxide 19 mmol/L (22-30) L 12/20/18 04:55 Anion Gap 14 (10-20) 12/20/18 04:55 BUN 28 mg/dl (7-17) H 12/20/18 04:55 Creatinine 1.7 mg/dl (0.7-1.2) H 12/20/18 04:55 Est GFR ( Amer) 36 12/20/18 04:55 Est GFR (Non-Af Amer) 29 12/20/18 04:55 POC Glucose (mg/dL) 113 mg/dL (65-110) H 12/21/18 16:19 Random Glucose 95 mg/dL (65-105) 12/20/18 04:55 Calcium 8.5 mg/dL (8.4-10.2) 12/20/18 04:55 Iron 110 ug/dL (37-170) 12/19/18 11:35 TIBC 317 ug/dL (250-450) 12/19/18 11:35 % Saturation 35 % (20-55) 12/19/18 11:35 Ferritin 24.9 ng/Ml (11.1-264.0) 12/19/18 11:35 Total Bilirubin 0.3 mg/dl (0.2-1.3) 12/18/18 06:45 AST 31 U/L (14-36) 12/18/18 06:45 ALT 30 U/L (9-52) 12/18/18 06:45 Alkaline Phosphatase 51 U/L (38-126) 12/18/18 06:45 Total Protein 5.8 G/DL (6.3-8.2) L 12/18/18 06:45 Albumin 3.3 g/dL (3.5-5.0) L 12/18/18 06:45 Globulin 2.6 gm/dL (2.2-3.9) 12/18/18 06:45 Albumin/Globulin Ratio 1.3 (1.0-2.1) 12/18/18 06:45 Vitamin B12 463 pg/mL (239-931) 12/19/18 11:35 25-OH Vitamin D Total 36.5 NG/ML (30.0-100.0) 12/20/18 04:55 Folate > 20.0 ng/mL 12/19/18 11:35 Urine Color Yellow (YELLOW) 12/19/18 Unknown Urine Clarity Slighty-cloudy (Clear) 12/19/18 Unknown Urine pH 7.0 (5.0-8.0) 12/19/18 Unknown Ur Specific [place] 1.012 (1.003-1.030) 12/19/18 Unknown Urine Protein Negative mg/dL (NEGATIVE) 12/19/18 Unknown Urine Glucose (UA) Neg mg/dL (NEGATIVE) 12/19/18 Unknown Urine Ketones Negative mg/dL (NEGATIVE) 12/19/18 Unknown Urine Blood Negative (NEGATIVE) 12/19/18 Unknown Urine Nitrate Negative (NEGATIVE) 12/19/18 Unknown Urine Bilirubin Negative (NEGATIVE) 12/19/18 Unknown Urine Urobilinogen 0.2-1.0 mg/dL (0.2-1.0) 12/19/18 Unknown Ur Leukocyte Esterase Neg Rahat/uL (Negative) 12/19/18 Unknown Urine RBC (Auto) 1 /hpf (0-3) 12/19/18 Unknown Urine Microscopic WBC < 1 /hpf (0-5) 12/19/18 Unknown Urine Bacteria Rare (<OCC) 12/19/18 Unknown Ur Random Creatinine 65 mg/dL (20-275) 12/19/18 Unknown U Random Total Protein 203 mg/g creat (21-161) H 12/19/18 Unknown Urine Total Volume <0.2 mg/dL 12/19/18 Unknown Microalb/Creat Ratio Note (<30) 12/19/18 Unknown Stool Occult Blood Negative (NEGATIVE) 12/20/18 Unknown - Hospital Course Hospital Course: Patient is a 74-year-old female with past medical history of dementia, diabetes, hypertension, and coronary artery disease. The patient presented to the hospital with left leg swelling and confirmed popliteal DVT on ultrasound. The ultrasound in the ED again confirmed the DVT and patient was started on heparin drip as anticoagulation. She was noted to be in acute renal failure as evidenced by elevated creatinine. Nephrology was consulted and it was thought that her kidney disease may be secondary to hypotension. 2 of her antihypertensive medications were stoppedhydrochlorothiazide and amlodipine. She was continued on losartan. Hematology saw the patient and recommended Eliquis for anticoagulant for DVT treatment. Cardiology saw the patient and noted the first degree AV block was secondary to Aricept and was benign. Gastroenterology was consulted due to concern for malignancy and anemia / iron deficiency . Her stool occult was negative and they indicated there is no need for any acute procedures in the hospital. Patient was given IV Venofer as iron supplementation due to anemia. Psychiatry recommended continuation of dementia m eds aricept and namenda and recommended seroquel for agitation. During the hospitalization patient's left leg swelling decreased while on the heparin dripp. she was therapeutic on the heparin drip and she was converted to Eliquis for home, as suggested by hematology. She was deemed stable for discharge home on December 21, 2018 to follow-up with her primary care physician within 1 week. Social work and case management assisted patient in an attempt to obtain a hospital bed for home due to her decreased mobility. They also attempted to assist patient in getting home physical therapy and increasing home health aid hours. Patient was discharged to home in stable condition. Discharge Exam - Head Exam Head Exam: NORMAL INSPECTION - Eye Exam Eye Exam: EOMI, Normal appearance, PERRL Pupil Exam: NORMAL ACCOMODATION - ENT Exam ENT Exam: Normal Exam - Neck Exam Neck exam: Full Rom, Normal Inspection - Respiratory Exam Respiratory Exam: NORMAL BREATHING PATTERN - Cardiovascular Exam Cardiovascular Exam: REGULAR RHYTHM - GI/Abdominal Exam GI & Abdominal Exam: Normal Bowel Sounds, Unremarkable - Rectal Exam Rectal Exam: Deferred - Extremities Exam Extremities exam: full ROM, normal inspection - Back Exam Back exam: NORMAL INSPECTION - Neurological Exam Neurological exam: Alert, CN II-XII Intact Additional comments: Dementia - Psychiatric Exam Psychiatric exam: Flat Affect, Normal Mood Additional comments: Dementia Discharge Plan - Discharge Medications Prescriptions: Apixaban [Eliquis] 10 mg PO BID #70 tab QUEtiapine [SEROquel] 12.5 mg PO Q12 PRN #30 tab PRN Reason: Agitation Vitamin B Complex/Vit C/Folic [Nephro-Shashank] 1 tab PO DAILY #30 tab - Follow Up Plan Disposition: HOME/ ROUTINE Patient education suggested?: Yes Instructions: Anemia Caused by Low Iron, Adult (DC), Deep Vein Thrombosis (Blood Clots in the Legs) (DC) Additional Instructions: follow up with primary MD in 1 week [facility] visiting [phone] Referrals: Mitchell Serrato MD [Medical Doctor] - Clinical Quality Measures - CQM - Stroke Anticoagulation Prescribed for Atrial Flutter, Atrial Fibrillation and History of:: Yes - CQM - Heart Failure Ejection Fraction: 40 % or Greater Left Ventricular Function to be assessed after discharge: No ANDREZ Inhibitor Prescribed: No Contraindication/Reason for not providing: ckd Beta-Ray Prescribed: None Contraindication/Reason for not providing: hypotention Angiotensin II Receptor Ray Prescribed: Yes AnticoagulationTherapy for Atrial Fibrillation/Atrialflutter: Yes Aldosterone Antagonist Prescribed: No Contraindication/Reason for not providing: hypotension Hydralazine Nitrate Prescribed: No Contraindication/Reason for not providing: hypotension Implantable Cardioverter Defibrillator Therapy: No Contraindication/Reason for not providing: no need ; sinus and normal HR Cardiac Resynchronization Therapy Prescribed: No Contraindication/Reason for not providing: sinus rhythm Will be discharged to: Home Follow Up Date (must be within 7 days from discharge): 12/28/18 - Date & Time of Discharge Summary Date of Discharge Summary: 12/21/18
[2018-12-22] MEDS ORDERED: Megestrol Acetate 40 mg/ml Cup PO SCH (09:00)
--- NOTE | 2018-12-22 11:28 | CP.PCM.PN ---
Subjective - Date & Time of Evaluation Date of Evaluation: 12/21/18 Time of Evaluation: 12:00 - Subjective Subjective: No complaints. Objective - Vital Signs/Intake and Output Vital Signs (last 24 hours): Temp Pulse Resp BP Pulse Ox 98.8 F 80 18 103/68 100 12/21/18 16:01 12/21/18 16:01 12/21/18 16:01 12/21/18 16:01 12/21/18 16:01 - Labs Labs: 12/19/18 11:45 12/20/18 04:55 PT 11.9 Seconds (9.8-13.1) 12/17/18 23:50 INR 1.0 12/17/18 23:50 APTT 35.4 Seconds (25.6-37.1) 12/21/18 09:15 - Head Exam Head Exam: ATRAUMATIC - Eye Exam Eye Exam: Normal appearance - ENT Exam ENT Exam: Mucous Membranes Dry - Respiratory Exam Respiratory Exam: NORMAL BREATHING PATTERN - Cardiovascular Exam Cardiovascular Exam: +S1, +S2 - GI/Abdominal Exam GI & Abdominal Exam: Normal Bowel Sounds Assessment and Plan (1) DVT (deep venous thrombosis) Assessment & Plan: agree with therapeutic anticoagulation outpatient Eliquis ? provoked from limited mobility/gait instability due to back pain Status: Acute (2) Anemia Assessment & Plan: borderline iron deficiency anemia on PO iron, s/p IV iron as well seen by GI, no plans for inpatient endoscopy creatinine elevated, outpatient reevaluation for possibel CT scan of abdomen if anemia does not correct Status: Acute (3) Coagulopathy Assessment & Plan: anticoauglation Status: Acute
== END 2018-12-21 16:40 | disposition home health service (06) | DRG 300 ==
LOC: H.ER 21:33 → H.ERHOLD 12-18 01:36 → H.TEL 12-18 03:07
PROVIDERS: ADMIT Family Medicine; ATTEND Family Medicine
DX: I82.432 Acute embolism and thrombosis of left popliteal vein (principal); N17.9 Acute kidney failure, unspecified; D68.9 Coagulation defect, unspecified; E87.2 Acidosis; E87.5 Hyperkalemia; F01.50 Vascular dementia, unspecified severity, without behavioral disturbance, psychotic disturbance, mood disturbance, and anxiety; I44.0 Atrioventricular block, first degree; D50.9 Iron deficiency anemia, unspecified; I95.89 Other hypotension; E03.9 Hypothyroidism, unspecified; E11.9 Type 2 diabetes mellitus without complications; I25.10 Atherosclerotic heart disease of native coronary artery without angina pectoris; I10 Essential (primary) hypertension; E78.00 Pure hypercholesterolemia, unspecified; R26.89 Other abnormalities of gait and mobility; R45.1 Restlessness and agitation; M19.90 Unspecified osteoarthritis, unspecified site; Z79.01 Long term (current) use of anticoagulants; Z79.02 Long term (current) use of antithrombotics/antiplatelets; Z79.84 Long term (current) use of oral hypoglycemic drugs; Z79.890 Hormone replacement therapy; Z95.5 Presence of coronary angioplasty implant and graft; Z87.891 Personal history of nicotine dependence